=== PATIENT | female | born 1940 | race Caucasian/White ===

== ENCOUNTER 2020-06-29 09:47 | Outpatient (CLI) | payer MEDICARE, SELFPAY ==
--- NOTE | ~2020-06-29 | DEXA_ITS ---
Bone Density Report Name: Anna Moctezuma Age: 80 Sex: Female Ethnicity: White Date of : 1940 Indication: postmenopausal osteoporosis; parental hip fracture; Referring Provider: Yessenia Mercado Study: Bone densitometry was performed. Exam Date: June 29, 2020 Accession number: [id number] Bone Density: Region BMD T-score Z-score Classification AP Spine (L1, L2, L3) 0.742 -2.5 0.1 Osteoporosis Femoral Neck (Left) 0.489 -3.2 -1.0 Osteoporosis Total Hip (Left) 0.590 -2.9 -0.9 Osteoporosis Total Hip Bilateral Avg 0.584 -3.0 -0.9 Osteoporosis Femoral Neck (Right) 0.495 -3.2 -0.9 Osteoporosis Total Hip (Right) 0.578 -3.0 -1.0 Osteoporosis World Health Organization criteria for BMD impression classify patients as: Normal (T-score at or above -1.0), Osteopenia (T-score between -1.0 and -2.5), or Osteoporosis (T-score at or below -2.5). 10-year Fracture Risk: FRAX not reported because: Some T-score for Spine Total or Hip Total or Femoral Neck at or below -2.5 Previous Exams: Region Exam Age BMD T-score BMD Change BMD Change Date g/cm2 vs Baseline vs Previous AP Spine(L1, L2, L3) 06/29/2020 80 0.742 -2.5 0.100(15.6%)* 0.100(15.6%)* 10/02/2014 74 0.642 -3.4 Total Hip(Left) 06/29/2020 80 0.590 -2.9 0.001(0.2%) 0.001(0.2%) 10/02/2014 74 0.589 -2.9 Total Hip(Right) 06/29/2020 80 0.578 -3.0 -0.032(-5.2%)* -0.032(-5.2%)* 10/02/2014 74 0.609 -2.7 *Denotes significance at 95% confidence level, LSC for AP Spine = 0.022 g/cm2, LSC for Total Hip = 0.027 g/cm2 Clinical Information Provided by Patient: Parent has had a hip fracture Smokes Has used the following medications: Vitamin D, Calcium Patient maximum height was 62.5 Menopause Age: 45 Drinks caffeinated beverages Onset of menses at age 13 Number of children 2 Impression: The patient has osteoporosis, based on the Left Femoral Neck T-score. The patient has risk factors, including: parental hip fracture, smoking. The BMD for the Total Hip(Right) decreased, changing by -5.2% since the last DXA exam. Discussion: INCREASED RISK OF FRACTURE. BONE DENSITY IS UNDESIRABLY LOW AT ONE OR MORE SKELETAL SITES, CONSISTENT WITH POSTMENOPAUSAL OSTEOPOROSIS. This patient's lowest T-score meets the World Health Organization's (WHO) criteria for osteoporosis at one or more sites (T-score -2.5 or below). In untreated patients, the risk of osteoporotic fracture increases approximately two-fold fo
== END 2020-06-29 09:48 | disposition home or self-care (01) ==
LOC: ANHIMG 09:49
PROVIDERS: PCP Family Medicine; Visit Provider Nurse Practitioner
DX: M81.0 Age-related osteoporosis without current pathological fracture (principal)
CPT/HCPCS: 77080

== ENCOUNTER 2020-11-16 09:50 | Outpatient (CLI) | payer MEDICARE, SELFPAY ==
--- NOTE | ~2020-11-16 | CT_ITS ---
EXAMINATION: CT lung screening DATE: 11/16/2020 10:03 INDICATION: pers hx of tobacco dependence TECHNIQUE: Computed tomography (CT) of the chest was performed without intravenous contrast. Addition al 3D reconstructions utilizing coronal maximum intensity projection (MIP) were performed. Automated exposure control and iterative reconstruction technique were employed. The dose-length product was 54 .60 mGy-cm. COMPARISON: CT neck dated 07/27/2019 FINDINGS: Severe emphysema with chronic mild biapical pleural-parenchymal scarring. 1.5 cm groundglass nodule w ithout solid component in the anterior segment of the right upper lobe. Additional more informative g roundglass opacities along the dependent aspect of the bilateral lower lobes consistent with mild pas sive atelectasis. No solid pulmonary nodules, pneumonia or pleural effusion. Heart size is normal. At herosclerotic coronary artery calcifications. No pericardial effusion. Additional atherosclerotic edgar cification along the normal caliber thoracic aorta. No pathologically enlarged thoracic lymphadenopat hy. Visualized upper abdomen is unremarkable. Mild lower thoracic levocurvature with moderate spondyl osis. IMPRESSION: 1. Lung-RADS category 2: Benign appearance or behavior. Continue annual screening with noncontrast lo w-dose chest CT in 12 months. 2. Severe emphysema.. Reviewed, dictated and finalized at location B. IMPRESSION: 1. Lung-RADS category 2: Benign appearance or behavior. Continue annual screeni ng with noncontrast low-dose chest CT in 12 months. 2. Severe emphysema..
== END 2020-11-16 09:51 | disposition home or self-care (01) ==
PROVIDERS: PCP Nurse Practitioner; Visit Provider Nurse Practitioner
DX: Z12.2 Encounter for screening for malignant neoplasm of respiratory organs (principal); Z87.891 Personal history of nicotine dependence; J43.9 Emphysema, unspecified
CPT/HCPCS: 71271

== ENCOUNTER 2021-06-12 09:02 | Outpatient (CLI) | payer MEDICARE, SELFPAY ==
[2021-06-12 09:43] LABS: Basophils Percent Auto 0.6 % (0.2-1.2); Eosinophils Absolute Auto 0.2 K/mm3 (0-0.3); Eosinophils Percent Auto 3.4 % (0-4.4); Hematocrit 39.9 % (37.0-47.0); Hemoglobin 13.4 g/dL (12.0-15.0); Immature Granulocyte Absolute 0.02 K/mm3 (0.00-0.031); Immature Granulocyte Percent A 0.3 % (0-0.5); Lymphocytes Absolute Auto 2.44 K/mm3 (0.9-3.2); Lymphocytes Percent Auto 34.3 % (18.3-44.2); Mean Corpuscular HGB Conc 33.6 g/dl (32-36); Mean Corpuscular Hemoglobin 32.3 pg (26-34); Mean Corpuscular Volume 96.1 fl (80-100); Mean Platelet Volume 9.7 fl (7.4-10.4); Monocytes Absolute Auto 0.5 K/mm3 (0.1-0.6); Monocytes Percent Auto 7.6 % (2.6-8.5); Neutrophils Absolute Auto 3.8 K/mm3 (1.3-6.7); Neutrophils Percent Auto 53.8 % (45.5-73.1); Platelet Count Result 244 k/mm3 (150-375); Red Blood Count 4.15 M/mm3 (4.2-5.4); Red Cell Distribution Width 13.2 % (11.5-14.5); White Blood Count 7.1 K/mm3 (4.5-10.0)
[2021-06-12 09:57] LABS: Alanine Aminotransferase 15 U/L (4-35); Albumin Level 4.5 g/dL (3.5-5.1); Alkaline Phosphatase 50 U/L (38-126); Anion Gap 5 mmol/L (8-16); Aspartate Amino Transferase 27 U/L (14-36); Bilirubin,Total 0.6 mg/dL (0.2-1.3); Blood Urea Nitrogen 14 mg/dL (7-17); Carbon Dioxide 28 mmol/L (22-30); Chloride 106 mmol/L (98-107); Cholesterol 191 mg/dL (0-200); Estimated Glomerular Filt Rate > 60; Glucose 97 mg/dL (65-110); HDL Direct 59 mg/dL; Potassium 4.6 mmol/L (3.4-5.0); Sodium 139 mmol/L (137-145); Triglycerides 134 mg/dL (<150)
[2021-06-12 10:09] LABS: LDL Cholesterol Direct 87 mg/dL
== END 2021-06-12 09:03 | disposition home or self-care (01) ==
PROVIDERS: PCP Nurse Practitioner; Visit Provider Nurse Practitioner
DX: E55.9 Vitamin D deficiency, unspecified (principal); E78.5 Hyperlipidemia, unspecified; I10 Essential (primary) hypertension
CPT/HCPCS: 36415; 80053; 80061; 82306; 85025

== ENCOUNTER 2022-05-22 10:17 | Outpatient (CLI) | payer MEDICARE, SELFPAY ==
--- NOTE | ~2022-05-22 | CT_ITS ---
EXAMINATION:CT diagnostic chest wo con DATE: 05/22/2022 10:42 INDICATION: Lung nodule. TECHNIQUE: Computed tomography (CT) of the chest was performed without intravenous contrast. Automate d exposure control and iterative reconstruction technique were employed. The dose-length product (DLP ) was 59.96 mGy-cm. COMPARISON: Chest CT 11/16/2020 FINDINGS: There is mild scarring at the lung apices. Again seen is a 1.4 severe groundglass opacity i n right upper lobe, likely benign. There is severe emphysema. There is mild bronchiectasis in right m iddle lobe and lingula. No pleural effusion. The heart size is normal. There are coronary artery calc ifications. No pericardial effusion. There is severe cervical spondylosis and moderate thoracic spond ylosis. There is dextroscoliosis of thoracic spine. IMPRESSION: 1. Severe emphysema. Reviewed, dictated and finalized at location A. IMPRESSION: 1. Severe emphysema.
== END 2022-05-22 10:18 | disposition home or self-care (01) ==
PROVIDERS: PCP Family Medicine; Visit Provider Nurse Practitioner
DX: R91.1 Solitary pulmonary nodule (principal); J43.9 Emphysema, unspecified
CPT/HCPCS: 71250

== ENCOUNTER 2022-07-09 07:23 | Outpatient (CLI) | payer MEDICARE, SELFPAY ==
--- NOTE | ~2022-07-09 | NM_ITS ---
EXAMINATION: NM neda stress w perfusion DATE: 07/09/2022 11:46 GROCERY CLERK STOCKING INDICATION: Dyspnea. TECHNIQUE: Rest images were obtained following intravenous administration of 10.7 mCi Tc99m tetrofosm in (Myoview). The patient was infused intravenously with Lexiscan (regadenoson). Then, 33 mCi Tc99m t etrofosmin (Myoview) was administered intravenously, and stress images were obtained. Data was recons tructed into short axis and horizontal and vertical long axis SPECT images. Gated SPECT images were a lso obtained. COMPARISON: None. FINDINGS: There is a moderate sized fixed perfusion abnormality of the left ventricle primarily invol ving the apex, inferior and septal kelly. There is no segmental wall motion abnormality. Left ventr icular ejection fraction measures 59%. IMPRESSION: 1. . Sized fixed perfusion abnormality of the left ventricle involving the apex, inferior and septal kelly, compatible with infarction. 2. Mildly decreased left ventricular ejection fraction measuring 59%. Reviewed, dictated and finalized at location A. ERY CLERK STOCKING IMPRESSION: 1. . Sized fixed perfusion abnormality of the left ventricle involving the apex , inferior and septal kelly, compatible with infarction. 2. Mildly decreased left ventricular ejection fraction measuring 59%.
--- NOTE | 2022-07-09 07:44 | ECHO_ITS ---
Patient Info Name: Anna Moctezuma Age: 82 years : 1940 Gender: Female Ht: 62 in Wt: 98 lbs BSA: 1.39 m2 Technical Quality: Fair Exam Date: 07/09/2022 8:20 AM Exam Location: [facility] Patient Status: Outpatient Admit Date: 07/09/2022 Staff Ordering Physician: Junaid Faulkner DO Inspector Finishing: Axel Benjamin RDCS, RT Attending Provider: Junaid Faulkner DO Referring Physician: Kaushik FOWLER; Exam Type: CA echo doppler with color flow Study Info Indications R06.00 - Dyspnea, unspecified Complete two-dimensional, color flow and Doppler transthoracic echocardiogram is performed. Strain analysis performed. Summary 1. Complete two-dimensional, color flow and Doppler transthoracic echocardiogram is performed. 2. Left ventricular systolic function is globally moderately reduced, estimated at 40-45%. 3. Left ventricular chamber dimension is mildly enlarged. 4. Left ventricular septal wall motion is abnormal with septal motion related to bundle branch block. 5. The left ventricular diastolic function is grade I diastolic dysfunction. 6. E/e' 9 is minimally elevated. 7. Global longitudinal strain is abnormal at -12.3%. 8. The aortic valve is not well visualized. Cannot determine number of aortic valve leaflets. 9. There is mild to moderate aortic valve stenosis based on a peak velocity of 133.16 cm/s, mean gradient of 4 mmHg, and aortic valve area of 1.42 cm2. 10. The mitral valve has moderately calcified annulus. 11. There is moderate mitral valve regurgitation. 12. There is trace tricuspid valve regurgitation. Left Ventricle E/e' 9 is minimally elevated. Global longitudinal strain is abnormal at -12.3%. Left ventricular systolic function is globally moderately reduced, estimated at 40-45%. Left ventricular chamber dimension is mildly enlarged. Left ventricular septal wall motion is abnormal with septal motion related to bundle branch block. The left ventricular diastolic function is grade I diastolic dysfunction. Right Ventricle Right ventricular systolic function is normal and with normal TAPSE 2.0 cm. Right ventricular chamber dimension is normal. Left Atria Left atrial chamber dimension is normal. Right Atria Right atrial chamber dimension is normal. Aortic Valve There is mild to moderate aortic valve stenosis based on a peak velocity of 133.16 cm/s, mean gradient of 4 mmHg, and aortic valve area of 1.42 cm2. The aortic valve is not well visualized. Cannot determine number of aortic valve leaflets. There is no aortic valve regurgitation. Pulmonic Valve There is no pulmonic regurgitation. Mitral Valve The mitral valve has moderately calcified annulus. There is no mitral valve stenosis. There is moderate mitral valve regurgitation. Tricuspid Valve RVSP is not calculated due to an inadequate TR jet. There is trace tricuspid valve regurgitation. Pericardium/Pleural There is no pericardial effusion. Inferior Vena Cava Normal inferior vena cava with >50% collapse upon inspiration consistent with normal right atrial pressure, 5 mmHg. Aorta The aortic root size at the sinus of Valsalva is normal. Left Ventricular Outflow Tract Name Value Normal LVOT 2D LVOT Diameter 1.89 cm
--- NOTE | 2022-07-09 07:45 | EST_ITS ---
Patient Info Name: Anna Moctezuma Age: 82 years : 1940 Gender: Female Ht: 62 in Wt: 98 lbs BSA: 1.39 m2 Exam Date: 07/09/2022 10:04 AM Exam Location: [facility] Stress Patient Status: Outpatient Admit Date: 07/09/2022 Staff Ordering Physician: Junaid Faulkner DO Attending Provider: Junaid Faulkner DO Exercise Technologist: Axel Benjamin RDCS, RT Exercise Physician: Junaid Faulkner DO Exam Type: CA stress neda w NM Study Info A regadenoson stress test was performed. Summary 1. 1. Inconclusive lexiscan stress test for ischemic ST changes by ECG criteria due to baseline LBBB. 2. 2. Baseline hypertension. 3. 3. Nuclear scan to follow and will be reported separately. Please correlate with it. 4. 4. Patient informed of the above results. Protocol: Lexiscan Stress ECG Details Stage: REST Duration (min): 2 min : 43 sec HR (bpm): 60 SBP (mmHg): 167 DBP (mmHg): 82 Stage: REST Duration (min): 5 min : 4 sec HR (bpm): 57 SBP (mmHg): 167 DBP (mmHg): 82 Stage: STAGE 1 Duration (min): 0 min : 59 sec HR (bpm): 84 SBP (mmHg): 157 DBP (mmHg): 65 Stage: RECOVERY Duration (min): 1 min : 0 sec HR (bpm): 103 SBP (mmHg): 157 DBP (mmHg): 65 Stage: RECOVERY Duration (min): 2 min : 0 sec HR (bpm): 102 SBP (mmHg): 157 DBP (mmHg): 65 Stage: RECOVERY Duration (min): 3 min : 0 sec HR (bpm): 98 SBP (mmHg): 151 DBP (mmHg): 79 Stage: RECOVERY Duration (min): 3 min : 32 sec HR (bpm): 97 SBP (mmHg): 151 DBP (mmHg): 79 Rest HR: 57 bpm Peak HR: 109 bpm Rest Sys BP: 167 mmHg Peak Sys BP: 157 mmHg Max Pred HR: 139 bpm % Max Pred HR: 78 % Target HR: 118 bpm Max RPP: 17,113 bpm*mmHg Termination Reason: Completed protocol Cardiac Symptoms: Shortness of breath Total Time: 1 min : 0 sec Rest Schmidt BP: 82 mmHg Peak Schmidt BP: 65 mmHg Total Dose: 0.4 mg Resting ECG Sinus rhythm, LBBB. Stress ECG No ST changes. Arrhythmias None. Report Signatures
== END 2022-07-09 07:24 | disposition home or self-care (01) ==
PROVIDERS: PCP Family Medicine; Visit Provider Internal Medicine Cardiovascular Disease
DX: R06.09 Other forms of dyspnea (principal); I34.0 Nonrheumatic mitral (valve) insufficiency
CPT/HCPCS: 78452; 93017; 93306; A9502; C8929; J2785

== ENCOUNTER 2022-09-13 10:15 | Outpatient (CLI) | payer MEDICARE, SELFPAY ==
--- NOTE | ~2022-09-13 | DEXA_ITS ---
Bone Density Report Name: KARRIE HANSON Age: 82 Sex: Female Ethnicity: White Date of : 1940 Indication: postmenopausal; screening for osteoporosis; prior fracture; secondary osteoporosis; Referring Provider: STEFANIE GUERRIER Study: Bone densitometry was performed. Exam Date: September 13, 2022 Accession number: [id number] Bone Density: Region BMD T-score Z-score Classification AP Spine(L1-L4) 0.854 -1.8 1.0 Osteopenia Femoral Neck (Left) 0.546 -2.7 -0.4 Osteoporosis Total Hip (Left) 0.628 -2.6 -0.4 Osteoporosis Femoral Neck (Right) 0.556 -2.6 -0.3 Osteoporosis Total Hip (Right) 0.610 -2.7 -0.6 Osteoporosis Total Hip Mean 0.619 -2.7 -0.5 Osteoporosis World Health Organization criteria for BMD impression classify patients as: Normal (T-score at or above -1.0), Osteopenia (T-score between -1.0 and -2.5), or Osteoporosis (T-score at or below -2.5). 10-year Fracture Risk: FRAX not reported because: Some T-score for Spine Total or Hip Total or Femoral Neck at or below -2.5 Treated for osteoporosis Clinical Information Provided by Patient: Has had a low trauma fracture Has secondary osteoporosis Is being treated for osteoporosis Has used the following medications: Prolia (i.e. denosumab), Calcium Patient maximum height was 62 Menopause Age: 45 No regular weight bearing exercise Does not regularly consume dairy products Drinks caffeinated beverages Onset of menses at age 13 Number of children 2 Impression: The patient has established osteoporosis, based on the Right Total Hip T-score and the existence of a prior fracture. The patient has risk factors, including: previous fracture. Discussion: It is important to ask patients whether they are taking their medications and to encourage continued and appropriate compliance with their osteoporosis therapies to reduce fracture risk. It is also important to review their risk factors and encourage appropriate calcium and vitamin D intakes, exercise, fall prevention and other lifestyle measures. Follow-Up: Consider a repeat BMD and Vertebral Fracture Assessment (VFA) exam in 2 years or sooner if medically necessary, to reassess this patient's status. Reported by: AG on 09/13/2022 10:47:00 AM. Reviewed, dictated and finalized at location AKarthikeyan FLEMING
== END 2022-09-13 10:16 | disposition home or self-care (01) ==
LOC: ANHIMG 10:15
PROVIDERS: PCP Family Medicine; Visit Provider Nurse Practitioner
DX: Z78.0 Asymptomatic menopausal state (principal); M85.88 Other specified disorders of bone density and structure, other site; M81.0 Age-related osteoporosis without current pathological fracture
CPT/HCPCS: 77080

== ENCOUNTER 2022-09-29 10:38 | Outpatient (CLI) | payer MEDICARE, SELFPAY ==
--- NOTE | ~2022-09-29 | US_ITS ---
EXAMINATION: US carotid duplex BI DATE: 09/29/2022 11:20 INDICATION: Carotid stenosis present on prior examination. TECHNIQUE: Grayscale, color Doppler, and p ulsed Doppler images of the cervical carotid arteries were obtained. The degree of vessel stenosis is placed in one of the following categories: normal, <50%, 50-69%, >=70% but less than near-occlusion, near-occlusion, or total occlusion. Note that percent stenosis relative to normal distal artery lume n diameter is indirectly measured from velocity measurements as described by Anatoliy, et al. Radiology 2003; 229:340-346. Notes: Normal: Peak systolic velocity <125 centimeters/sec and no plaque <50%. Peak systolic velocity <125 ( EDV <40; ICA/CCA PSV ratio <2.0; used these factors only a tandem lesions or low cardiac output or co ntralateral disease) 50-69 %: PSV 125-230 (EDV 40-100; ratio 2-4) >= 70% but less than near occlusion: PSV greater than 230 (EDV > 100; ratio> 4.0) Near Occlusion: PSV that is variable; markedly narrowed lumen Occlusion: Absent flow on color/spectral Doppler and no lumen on lópez scale. COMPARISON: Ultrasound dated 06/08/2019. FINDINGS: RIGHT: The right common carotid artery (CCA) peak systolic velocity (PSV) is 95 cm/s. The right internal car otid artery (ICA) PSV is 141 cm/s. The right ICA end-diastolic velocity (EDV) is 49 cm/s. The right I CA/CCA PSV ratio is 1.5. The external carotid artery (ECA) PSV is 127 cm/s. There is antegrade flow i n the right vertebral artery. LEFT: The left CCA PSV is 71 cm/s. The left ICA PSV is 261 cm/s. The left ICA EDV is 45 cm/s. The left ICA/ CCA PSV ratio is 3.7. The ECA PSV is 230 cm/s. There is antegrade flow in the left vertebral artery. IMPRESSION: 1. 50-69% stenosis in the right internal carotid artery by sonographic criteria. 2. Greater than or equal to 70% stenosis in the left internal carotid artery by sonographic criteria. Reviewed, dictated and finalized at location B. OBJECTS REPAIRER IMPRESSION: 1. 50-69% stenosis in the right internal carotid artery by sonographic criteria . 2. Greater than or equal to 70% stenosis in the left internal carotid artery by sonographic criteria.
== END 2022-09-29 10:39 | disposition home or self-care (01) ==
PROVIDERS: PCP Family Medicine; Visit Provider Internal Medicine Cardiovascular Disease
DX: I65.23 Occlusion and stenosis of bilateral carotid arteries (principal)
CPT/HCPCS: 93880

== ENCOUNTER 2023-09-23 12:00 | Outpatient (CLI) | payer MEDICARE, SELFPAY ==
--- NOTE | 2023-09-23 12:40 | ECHO_ITS ---
Patient Info Name: Anna Moctezuma Age: 83 years : 1940 Gender: Female Ht: 62 in Wt: 103 lbs BSA: 1.42 m2 HR: 78 bpm BP: 123 / 65 mmHg Technical Quality: Fair Exam Date: 09/23/2023 12:53 PM Exam Location: Echo Lab Patient Status: Outpatient Admit Date: 09/23/2023 Staff Ordering Physician: Junaid Faulkner DO Psychology Clinician: Yamileth Sullivan RDCS Attending Provider: Junaid Faulkner DO Referring Physician: Kaushik FOWLER; Exam Type: CA echo doppler color flow Study Info Indications - nonrheumatic aortic valve stenosis Complete two-dimensional, color flow and Doppler transthoracic echocardiogram is performed. Summary 1. Complete two-dimensional, color flow and Doppler transthoracic echocardiogram is performed. 2. Left ventricular chamber dimension is normal. 3. Left ventricular systolic function is normal, estimated at 55-60%. 4. The left ventricular diastolic function is grade I diastolic dysfunction. 5. Mid LV septum is hypokinetic. 6. E/e' 10 is mildly elevated. 7. Global longitudinal strain is normal at -20.3%. 8. There is mild aortic valve sclerosis. 9. There is mild mitral valve regurgitation. 10. There is trace tricuspid valve regurgitation. 11. No pulmonary hypertension, estimated pulmonary arterial systolic pressure is 31 mmHg. Left Ventricle E/e' 10 is mildly elevated. Global longitudinal strain is normal at -20.3%. Left ventricular chamber dimension is normal. Left ventricular systolic function is normal, estimated at 55-60%. The left ventricular diastolic function is grade I diastolic dysfunction. Mid LV septum is hypokinetic. Right Ventricle Right ventricular chamber dimension is normal. Right ventricular systolic function is normal. Left Atria Left atrial chamber dimension is normal. Right Atria Right atrial chamber dimension is normal. Aortic Valve The aortic valve is trileaflet. There is mild aortic valve sclerosis. There is no aortic valve stenosis. There is no aortic valve regurgitation. Pulmonic Valve There is no pulmonic regurgitation. Mitral Valve There is no mitral valve stenosis. There is mild mitral valve regurgitation. Tricuspid Valve There is trace tricuspid valve regurgitation. No pulmonary hypertension, estimated pulmonary arterial systolic pressure is 31 mmHg. Pericardium/Pleural There is no pericardial effusion. Inferior Vena Cava Normal inferior vena cava with >50% collapse upon inspiration consistent with normal right atrial pressure, 5 mmHg. Aorta The aortic root size at the sinus of Valsalva is normal. Left Ventricular Outflow Tract Name Value Normal LVOT 2D LVOT Diameter 2.0 cm LVOT Doppler LVOT Peak Gradient 4 mmHg LVOT Mean Gradient 2 mmHg LVOT VTI 21 cm LVOT VTI/AV VTI Ratio 0.7 LVOT Stroke Volume 66 ml LVOT CO 13.2 l/min LVOT CI 9.3 l/min/m2 Pulmonic Valve Name Value Normal
== END 2023-09-23 12:01 | disposition home or self-care (01) ==
LOC: ANHCARD 12:01
PROVIDERS: PCP Family Medicine; Visit Provider Internal Medicine Cardiovascular Disease
DX: I35.0 Nonrheumatic aortic (valve) stenosis (principal); I34.0 Nonrheumatic mitral (valve) insufficiency
CPT/HCPCS: 93306

== ENCOUNTER 2023-12-07 09:21 | Outpatient (CLI) | payer MEDICARE, SELFPAY ==
--- NOTE | ~2023-12-07 | MM_ITS ---
EXAMINATION: MM screening love BI w fernando HISTORY: Screening mammogram TECHNIQUE: Craniocaudal and mediolateral oblique 3-D tomosynthesis images were obtained and synthetic 2-D images were generated. CAD analysis was submitted and interpreted. COMPARISON: 06/08/2019 bilateral screening mammogram BREAST PARENCHYMAL COMPOSITION: There are scattered areas of fibroglandular density. FINDINGS: There is asymmetric increased density in the posterior inner right breast on CC projection, possibly related to chest wall/muscle. Diagnostic right mammogram is recommended with ultrasound if required. Otherwise there is no evidence of suspicious mass, calcification, or architectural distortion to sugg est malignancy in either breast. There has been no other suspicious interval change. IMPRESSION: 1. Posterior medial right breast asymmetry on craniocaudal view 2. Diagnostic right mammogram is recommended, with ultrasound if required BI-RADS Category 0: Incomplete: Needs additional imaging evaluation. Reviewed, dictated and finalized at location A.
== END 2023-12-07 09:22 | disposition home or self-care (01) ==
PROVIDERS: PCP Family Medicine; Visit Provider Nurse Practitioner Family
DX: Z12.31 Encounter for screening mammogram for malignant neoplasm of breast (principal); R92.8 Other abnormal and inconclusive findings on diagnostic imaging of breast
CPT/HCPCS: 77063; 77067

== ENCOUNTER 2024-01-11 12:33 | Outpatient (CLI) | payer MEDICARE, SELFPAY ==
--- NOTE | ~2024-01-11 | MM_ITS ---
EXAMINATION: MM diagnostic love RT w fernando HISTORY: Follow-up right breast asymmetry TECHNIQUE: Additional 3-D tomosynthesis images of diagnostic were performed and synthetic 2-D images were generated. CAD analysis was submitted and interpreted. COMPARISON: Comparison to multiple prior studies sequentially, with oldest reviewed study dated 04/2015. BREAST PARENCHYMAL COMPOSITION: Not dense: There are scattered areas of fibroglandular density. FINDINGS: Interval resolution of asymmetry medially in the right breast on CC view. No evidence for m alignancy in the right breast. IMPRESSION: 1. No mammographic evidence for malignancy in the right breast. 2. Routine yearly screening mammogram and regular clinical breast examination are recommended. BI-RADS Category 1: Negative Reviewed, dictated and finalized at location B. IMPRESSION: 1. No mammographic evidence for malignancy in the right breast. 2. Routine yearly screening mammogram and regular clinical breast examination a re recommended. BI-RADS Category 1: Negative
== END 2024-01-11 12:34 | disposition home or self-care (01) ==
LOC: ANHIMG 12:35
PROVIDERS: PCP Family Medicine; Visit Provider Family Medicine
DX: N64.89 Other specified disorders of breast (principal); R92.8 Other abnormal and inconclusive findings on diagnostic imaging of breast
CPT/HCPCS: 77061; 77065; G0279

== ENCOUNTER 2024-06-02 12:44 | Outpatient (CLI) | payer MEDICARE, SELFPAY ==
--- NOTE | ~2024-06-02 | CT_ITS ---
EXAMINATION: CTA brain carotid DATE: 06/02/2024 13:14 INDICATION: Occlusion and stenosis of unspecified carotid artery. TECHNIQUE: Computed tomographic angiography (CTA) of the head was performed without and with 100 mL O mnipaque-350 intravenous contrast. CTA of the neck was performed with intravenous contrast. Automated exposure control and iterative reconstruction technique were employed. The dose-length product was 1 438.25 mGy-cm. Maximum intensity projection and volume rendered 3D-reconstructions were created by chantel navsa technologist on a separate workstation. COMPARISON: Head CT 07/07/2019, neck CTA 07/27/2019 FINDINGS: HEAD CTA: There are scattered areas of low attenuation in the cerebral white matter, which is within normal limits for the patient's age. There is no intracranial hemorrhage, acute infarction, or abnorm al intracranial mass lesion. The ventricles are normal in size. There are likely changes of ocular le ns replacement surgeries. There is mild mucosal thickening in the paranasal sinuses. The mastoid air cells are normal. The vertebral arteries are codominant. There is no significant stenosis of basilar artery or the posterior cerebral arteries. The posterior communicating arteries are normal. There is no significant stenosis of intracranial internal carotid arteries or anterior or middle cerebral valeria charla. Anterior commuting artery is normal. There is no aneurysm. NECK CTA: The lung apices demonstrate emphysema. There is mild scarring at the lung apices. There are nodules in the thyroid measuring up to 7 mm, likely not clinically significant. There are no patholo gically enlarged lymph nodes. There is no significant stenosis of the vertebral arteries. There is pl aque in the proximal internal carotid. There is 35% stenosis of the proximal right internal carotid a rtery relative to normal distal artery lumen diameter (NASCET criteria). There is 57% stenosis of the proximal left internal carotid artery relative to normal distal artery lumen diameter. IMPRESSION: 1. Normal aging brain. No aneurysm or significant intracranial arterial stenosis. 2. 35% stenosis of the proximal right internal carotid artery relative to normal distal artery lumen diameter (NASCET criteria). 3. 57% stenosis of the proximal left internal carotid artery relative to normal distal artery lumen d iameter. Reviewed, dictated and finalized at location A. IMPRESSION: 1. Normal aging brain. No aneurysm or significant intracranial arterial stenosi s. 2. 35% stenosis of the proximal right internal carotid artery relative to anna l distal artery lumen diameter (NASCET criteria). 3. 57% stenosis of the proximal left internal carotid artery relative to normal distal artery lumen diameter.
[2024-06-02 13:04] LABS: Estimated Glomerular Filt Rate 53
== END 2024-06-02 12:45 | disposition home or self-care (01) ==
LOC: ANHIMG 12:47
PROVIDERS: PCP Nurse Practitioner Family; Visit Provider Internal Medicine Cardiovascular Disease
DX: I65.23 Occlusion and stenosis of bilateral carotid arteries (principal); I65.29 Occlusion and stenosis of unspecified carotid artery
CPT/HCPCS: 70496; 70498; Q9967

== ENCOUNTER 2024-09-30 11:31 | Outpatient (CLI) | payer MEDICARE, SELFPAY ==
--- NOTE | ~2024-09-30 | DEXA_ITS ---
Bone Density Report Name: KARRIE HANSON Age: 84 Sex: Female Ethnicity: White Date of : 1940 Indication: postmenopausal osteoporosis; monitoring treatment; height loss; prior fracture; secondary osteoporosis; Referring Provider: NEHAL HERNANDEZ Study: Bone densitometry was performed. Exam Date: September 30, 2024 Accession number: [id number] Bone Density: Region BMD T-score Z-score Classification AP Spine(L1-L4) 0.827 -2.0 0.8 Osteopenia Femoral Neck (Left) 0.528 -2.9 -0.4 Osteoporosis Total Hip (Left) 0.645 -2.4 -0.2 Osteopenia Femoral Neck (Right) 0.556 -2.6 -0.2 Osteoporosis Total Hip (Right) 0.594 -2.8 -0.6 Osteoporosis Total Hip Mean 0.620 -2.6 -0.4 Osteoporosis World Health Organization criteria for BMD impression classify patients as: Normal (T-score at or above -1.0), Osteopenia (T-score between -1.0 and -2.5), or Osteoporosis (T-score at or below -2.5). 10-year Fracture Risk: FRAX not reported because: Some T-score for Spine Total or Hip Total or Femoral Neck at or below -2.5 Treated for osteoporosis Previous Exams: Region Exam Age BMD T-score BMD Change BMD Change Date g/cm2 vs Baseline vs Previous AP Spine (L1-L4) 09/30/2024 84 0.827 -2.0 0.167 (25.3%)# -0.027 (-3.1%) 09/13/2022 82 0.854 -1.8 0.194 (29.4%)* 0.194 (29.4%)* 10/02/2014 74 0.660 -3.5 Total Hip(Left) 09/30/2024 84 0.645 -2.4 0.056 (9.6%)# 0.017 (2.7%)# 09/13/2022 82 0.628 -2.6 0.039 (6.6%)* 0.038 (6.4%)* 06/29/2020 80 0.590 -2.9 0.001 (0.2%) 0.001 (0.2%) 10/02/2014 74 0.589 -2.9 Total Hip(Right) 09/30/2024 84 0.594 -2.8 -0.015 (-2.4%) -0.015 (-2.5%) 09/13/2022 82 0.610 -2.7 0.000 (0.1%)# 0.032 (5.5%)# 06/29/2020 80 0.578 -3.0 -0.032 (-5.2%) -0.032 (-5.2%) 10/02/2014 74 0.609 -2.7 *Denotes significance at 95% confidence level, LSC for AP Spine = 0.022 g/cm2, LSC for Total Hip = 0.027 g/cm2 # Denotes dissimilar scan types or analysis methods Clinical Information Provided by Patient: Has had a low trauma fracture Has secondary osteoporosis Is being treated for osteoporosis Has used the following medications: Prolia (i.e. denosumab), Calcium Patient maximum height was 62 Menopause Age: 45 No regular weight bearing exercise Does not regularly consume dairy products Drinks caffeinated beverages Onset of menses at age 13 Number of children 2 Impression: The patient has established osteoporosis, based on the Left Femoral Neck T-score and the existence of a prior fracture. The patient has risk factors, including: previous fracture. No significant bone loss was observed. Discussion: PATIENT UNDER TREATMENT WITH NO SIGNIFICANT BMD LOSS SINCE LAST EXAM. In an untreated patient, BMD typically declines with age. A lack of decline or gain is usually a sign that treatment is efficacious and fracture risk is reduced. It is important to ask patients whether they are taking their medications and to encourage continued and appropriate compliance with their osteoporosis therapies to reduce fracture risk. It is also important to review their risk factors and encourage appropriate calcium and vitamin D intakes, exercise, fall prevention and other lifestyle measures. Follow-Up: Consider a repeat BMD and Vertebral Fracture Assessment (VFA) exam in 2 years or sooner if medically necessary, to reassess this patient's status. Reported by: SERGEY on 09/30/2024 12:22:00 PM. Reviewed, dictated and finalized at location AKarthikeyan [facility] CENTERAkbar
--- OUTSIDE RECORDS SUMMARY | 2024-09-30 11:57 | XMS_ITS | Continuity of Care Document ---
Author Organization [email or web address] Address [address] [place] [address] Phone Care Team Providers Care Outboard Motor Assembler Name Role Phone Kaushal Duong MD Unavailable [...] Diagnoses Date Provider Providers Copied on Encounter [facility], [address], [place], [place], [id number], tel:[phone] SEC Tito BOSS Professional F/u exam, postop (chief complaint) Encounter for examination following surgery 6 Ad Easley. [address], [facility] [[email or web address] [place], [address], [place]. tel:[phone] Referring Provider: Kaushal Galicia, [address] [facility] [[email or web address]] A, [place], [address] . tel:[phone] [facility], [address], [place], [place], [address], [place] tel:[phone] SEC Tito BOSS Professional Procedure (chief complaint) Other secondary cataract, left eye 6 Ad Easley. [address], [address] [place], [address], [place]. tel:[phone] Referring Provider: Kaushal Galicia, [address], [place], [address] . tel:[phone] [facility], [address], [place], [place], [address], [place] tel:[phone] SEC Tito GERA Professional No Information 5 Yessiphyllis Kaushal. [address], [address] [place], [address], [place]. tel:[phone] [facility], [address], [place], [place], [address], [place] tel:[phone] SEC Tito BOSS Professional Procedure (chief complaint) After-catara ct of right eye with vision obscured Dec-0 9-201 5 Wankum Kaushal. [address], [address], [place], [place], [address], [place]. tel:[phone] Referring Provider: Kaushal Galicia, [address], [place], [address] . tel:[phone] [facility], [address], [place], [place], [address], [place] tel:[phone] SEC Tito BOSS Professional Difficulty reading (chief complaint) Pseudophakia of both eyesAfter-ca taract with vision obscured of both eyes Nov-2 5-201 5 Wankum Kaushal. [address], [address], [place], [place], [address], [place]. tel:[phone] Referring Provider: Kaushal Galicia, [address], [place], [address] . tel:[phone] [facility], [address], [place], [place], [address], [place] tel:[phone] SEC Tito BOSS Professional No Information Nov-0 5-201 5 Wankum Kaushal. [address], [address], [place], [place], [address], [place]. tel:[phone] [facility], [address], [place], [place], [address], [place] tel:[phone] SEC Tito BOSS Professional Complete Eye Exam (chief complaint)red ness (chief complaint) Pseudophakia After cataract not obscuring visionDry eye Nov-1 8-201 4 Wankum Kaushal. [address] [facility], [address], [place], [place], [address], [place]. tel:[phone] Referring Provider: Kaushal Galicia, [address] [facility] [address], [place], [address] . tel:[phone] [facility], [address], [place], [place], [address], [place] tel:[phone] SEC Tito BOSS Professional a comprehensive exam (chief complaint) FOLLOW-UP SURGERY NOSOPN CHRIS PÉREZLN FIND Low Risk 4 Nissa López. [address], [address], [place], [place], [facility], [place]. tel:[phone] Referring Provider: Kaushal Galicia, [address] [facility] [address], [place], [address] . tel:[phone] [facility], [address], [place], [place], [address], [place] tel:[phone] SEC Campbell Ingrid [facility] FOLLOW-UP SURGERY NOS 4 Dale Kennedy. [address], [address], [place], [place], [address], [place]. tel:[phone] [facility], [address], [place], [place], [address], [place] tel:[phone] SEC Tito BOSS Professional a comprehensive exam (chief complaint) FOLLOW-UP SURGERY NOS 4 Nissa López. [address], [address], [place], [place], [facility], [place]. tel:[phone] Referring Provider: Kaushal Galicia, [address] [facility] [address], [place], [address] . tel:[phone] [facility], [address], [place], [place], [address], [place] tel:[phone] SEC Tito [place] Professional a comprehensive exam (chief complaint) FOLLOW-UP SURGERY NOS 4 Ventur[place]apis Kaushal. [address] [facility], [address], [place], [place], [address], [place]. tel:[phone] Referring Provider: Kaushal Galicia, [address], [place], [address] . tel:[phone] [facility], [address], [place], [place], [address], [place] [phone] [facility] No Information 4 Dale Brent. [address], [address], [place], [place], [address], [place]. tel:[phone] Referring Provider: Kaushal Galicia, [address] [facility] [address], [place], [address] . tel:[phone] [facility], [address], [place], [place], [address], [place] tel:[phone] SEC Campbellsavanah Chin No Information 4 Dale Brent. [address], [address], [place], [place], [address], [place]. tel:[phone] Referring Provider: Kaushal Galicia, [address], [place], [address] . tel:[phone] [facility], [address], [place], [place], [address], [place] tel:[phone] SEC [place] Professional a comprehensive exam (chief complaint) FOLLOW-UP SURGERY NOS 4 Venturachapis Kaushal. [address], [address] [place], [address], [place]. tel:[phone] Referring Provider: Kaushal Galicia, [address] [facility] [address], [place], [address] . tel:[phone] [facility] [facility], [address], [place], [place], [address], [place] tel:[phone] SEC Tito BOSS Professional 1 day post op (chief complaint) FOLLOW-UP SURGERY NOS 4 Ad Easley. [address] [facility], [address], [place], [place], [address], [place]. tel:[phone] Referring Provider: Kaushal Galicia, [address] [facility] [address], [place], [address] . tel:[phone] [facility], [address], [place], [place], [address], [place] tel:[phone] [facility] No Information 4 Dale eKnnedy. [address], [address], [place], [place], [address], [place]. tel:[phone] Referring Provider: Kaushal Galicia, [address] [facility] [address], [place], [address] . tel:[phone] [facility], [address], [place], [place], [address], [place] tel:[phone] SEC Viral Mena No Information 4 Dale Brent. [address], [address], [place], [place], [address], [place]. tel:[phone] Referring Provider: Kaushal Galicia, [address] [facility] [address], [place], [address] . tel:[phone] Office/outpa tient Visit, Est [facility], [address], [place], [place], [address], [place] tel:[phone] SEC Tito BOSS Professional a comprehensive exam (chief complaint) SENILE NUCLEAR CATARACT Nov 3 Dale Kennedy. [address], [address], [place], [place], [address], [place]. tel:[phone] Referring Provider: Kaushal Galicia, [address] [facility] [address], [place], [address] . tel:[phone] [facility], [address], [place], [place], [address], [place] tel:[phone] SEC Raleigh GERA Professional a comprehensive exam (chief complaint) SENILE NUCLEAR CATARACTOPN CHRIS PÉREZLN FIND Low Risk Oct-2 3 Ad Easley. [address] [facility], [email or web address]] A, [place], [place], [address], . tel:[phone] Referring Provider: Kaushal Galicia, [address] [facility] [address], [place], [address] . tel:[phone] Family History Family Member Type Diagnosis Age At Onset No Information Payers Payer name Insurance type Covered alliance party ID Authoriza tion(s) No Information Social [...] post op exam. Return in 1 month [facility] Kaushal Duong M.D. for post op exam. [...]
== END 2024-09-30 11:32 | disposition home or self-care (01) ==
LOC: ANHIMG 11:32
PROVIDERS: PCP Family Medicine; Visit Provider Family Medicine
DX: Z78.0 Asymptomatic menopausal state (principal); M85.88 Other specified disorders of bone density and structure, other site; M81.0 Age-related osteoporosis without current pathological fracture; M85.852 Other specified disorders of bone density and structure, left thigh
CPT/HCPCS: 77080

== ENCOUNTER 2024-10-12 09:36 | Outpatient (CLI) | payer MEDICARE, SELFPAY ==
--- NOTE | 2024-10-12 09:57 | ECHO_ITS ---
Patient Info Name: Anna Moctezuma Age: 84 years : 1940 Gender: Female Ht: 62 in Wt: 102 lbs BSA: 1.42 m2 HR: 60 bpm BP: 120 / 58 mmHg Technical Quality: Good Exam Date: 10/12/2024 10:07 AM Exam Location: Echo Lab Patient Status: Outpatient Admit Date: 10/12/2024 Staff Ordering Physician: Junaid Faulkner DO Supervisory Air Intercept Controller: Claire Clancy RDCS Attending Provider: Junaid Faulkner DO Referring Physician: Kaushik FOWLER; Exam Type: CA echo doppler color flow Study Info Complete two-dimensional, color flow and Doppler transthoracic echocardiogram is performed. Summary 1. Complete two-dimensional, color flow and Doppler transthoracic echocardiogram is performed. 2. Left ventricular chamber dimension is mildly enlarged. 3. Left ventricular systolic function is preserved, estimated at 50-55%. 4. The left ventricular diastolic function is abnormal. 5. E/e' 12 is mildly elevated. 6. There is moderate aortic valve sclerosis. 7. There is moderate mitral valve regurgitation. 8. There is mild to moderate tricuspid valve regurgitation. 9. Mild pulmonary hypertension, estimated pulmonary arterial systolic pressure is 45 mmHg. Left Ventricle E/e' 12 is mildly elevated. Left ventricular systolic function is preserved, estimated at 50-55%. Left ventricular chamber dimension is mildly enlarged. The left ventricular diastolic function is abnormal. Right Ventricle Right ventricular systolic function is normal and with normal TAPSE 1.9 cm. Right ventricular chamber dimension is normal. Left Atria Left atrial chamber dimension is normal. Right Atria Right atrial chamber dimension is normal. Aortic Valve The aortic valve is trileaflet. There is moderate aortic valve sclerosis. There is no aortic valve stenosis. There is no aortic valve regurgitation. Pulmonic Valve There is no pulmonic regurgitation. Mitral Valve There is no mitral valve stenosis. There is moderate mitral valve regurgitation. Tricuspid Valve There is mild to moderate tricuspid valve regurgitation. Mild pulmonary hypertension, estimated pulmonary arterial systolic pressure is 45 mmHg. Pericardium/Pleural There is no pericardial effusion. Inferior Vena Cava Normal inferior vena cava with >50% collapse upon inspiration consistent with normal right atrial pressure, 5 mmHg. Aorta The aortic root size at the sinus of Valsalva is normal. Left Ventricular Outflow Tract Name Value Normal LVOT 2D LVOT Diameter 1.7 cm LVOT Doppler LVOT Peak Gradient 4 mmHg LVOT Mean Gradient 2 mmHg LVOT VTI 21 cm LVOT VTI/AV VTI Ratio 0.5 LVOT Stroke Volume 48 ml LVOT CO 9.0 l/min LVOT CI 6.3 l/min/m2 Pulmonic Valve Name Value Normal PV Doppler PV Peak Gradient 4 mmHg Mitral Valve Name Value Normal MV Doppler MV Decel Dent 383 cm/s2 MV PHT 74 ms MV Area (PHT) 3.0 cm2 4.0-5.0 MV Diastolic Function MV E Peak Velocity 98 cm/s MV A Peak Velocity 88 cm/s MV E/A 1.1 MV Decel Time 255 ms MV Annular TDI MV E/e' (Septal) 14.5 <=8.0 MV E/e' (Lateral) 10.9 <=8.0 MV E/e' (Average) 12.7 Tricuspid Valve Name Value Normal TV Regurgitation Doppler TR Peak Velocity 317 cm/s TR Peak Gradient 40 mmHg Estimated PAP/RSVP RA Pressure 5 mmHg <=5 PA Systolic Pressure 45 mmHg <36 RV Systolic Pressure 45 mmHg <36 Aorta Name Value Normal Ascending Aorta Ao Root Diameter (MM) 2.7 cm Ao Root Diam Index (MM) 1.9 cm/m2 Aortic Valve Name Value Normal AV Doppler AV Peak Velocity 159 cm/s AV Peak Gradient 10 mmHg AV Mean Gradient 7 mmHg AV VTI 40 cm AV Area (Cont Eq VTI) 1.2 cm2 >=3.0 AV Area (Cont Eq Polo) 1.3 cm2 AV Regurgitation 2D LVOT Area 2.2 cm2 Ventricles Name Value Normal LV Dimensions 2D/MM IVS Diastolic Thickness (2D) 1.1 cm 0.6-1.0 LVID Diastole (2D) 3.7 cm 3.8-5.2 LVIW Diastolic Thickness (2D) 1.0 cm 0.6-0.9 LVID Systole (2D) 2.7 cm 2.2-3.5 LVOT Diameter 1.7 cm LV Mass (2D Cubed) 115.03 g 67.00-162.00 LV Mass Index (2D Cubed) 81 g/m2 43-95 Relative Wall Thickness (2D) 0.52 LV Fractional Shortening/Ejection Fraction 2D/MM LV Fractional Shortening (2D) 26 % 27-45 LV EF (2D Teicholz) 52 % 54-74 LV Diastolic Volume (4C MOD) 64 ml LV EF (4C MOD) 49 % LV Diastolic Volume (2C MOD) 78 ml LV EF (2C MOD) 60 % LV Diastolic Volume (BP MOD) 73 ml 46-106 LV Diastolic Volume Index (BP MOD) 52 ml/m2 29-61 LV Systolic Volume (BP MOD) 31 ml 14-42 LV Systolic Volume Index (BP MOD) 22 ml/m2 8-24 LV EF (BP MOD) 57 % 54-74 LV Diastolic Length (4C) 7.3 cm LV Systolic Length (4C) 6.3 cm LV Stroke Volume (4C MOD) 32 ml Atria Name Value Normal LA Dimensions LA Dimension (MM) 2.7 cm 2.7-3.8 LA Volume (4C A-L) 25 ml LA Volume (BP A-L) 30 ml RA Dimensions RA Area (4C) 11.0 cm2 <=18.0 Report Signatures
--- OUTSIDE RECORDS SUMMARY | 2024-10-12 10:30 | XMS_ITS | Continuity of Care Document ---
Author Organization [employer] [facility] Address [address] [place] [id number] Phone Care Team Providers Care Scientist Name Role Phone Kaushal Duong MD Unavailable [...] Diagnoses Date Provider Providers Copied on Encounter [facility], [address], [place], [place], [address], tel:[phone] SEC Tito BOSS Professional F/u exam, postop (chief complaint) Encounter for examination following surgery 6 Ad Easley. [address], [facility] [place], [place], [address], [place]. tel:[phone] Referring Provider: Kaushal Galicia, [address] [facility] [address], [place], [address] . tel:[phone] [facility], [address], [place], [place], [address], [place] tel:[phone] SEC Tito BOSS Professional Procedure (chief complaint) Other secondary cataract, left eye 6 Ad Easley. [address] [employer], [address] [place], [place], [address], [place]. tel:[phone] Referring Provider: Kaushal Galicia, [address], [place], [address] . tel:[phone] [facility], [address], [place], [place], [address], [place] tel:[phone] SEC Tito GERA Professional No Information 5 Yessiphyllis Kaushal. [address], [address] [place], [place], [address], [place]. tel:[phone] [facility], [address], [place], [place], [address], [place] tel:[phone] SEC Tito BOSS Professional Procedure (chief complaint) After-catara ct of right eye with vision obscured Dec-0 9-201 5 Wankum Kaushal. [address], [address], [place], [place], [address], [place]. tel:[phone] Referring Provider: Kaushal Galicia, [address], [place], [address] . tel:[phone] [facility], [address], [place], [place], [address], [place] tel:[phone] SEC Tito BOSS Professional Difficulty reading (chief complaint) Pseudophakia of both eyesAfter-ca taract with vision obscured of both eyes Nov-2 5-201 5 Wankum Kaushal. [address], [address], [place], [place], [address], [place]. tel:[phone] Referring Provider: Kaushal Galicia, [address], [place], [address] . tel:[phone] [facility], [address], [place], [place], [address], [place] tel:[phone] SEC Tito BOSS Professional No Information Nov-0 5-201 5 Wankum Kaushal. [address], [address], [place], [place], [address], [place]. tel:[phone] [facility], [address], [place], [place], [address], [place] tel:[phone] SEC Tito BOSS Professional Complete Eye Exam (chief complaint)red ness (chief complaint) Pseudophakia After cataract not obscuring visionDry eye Nov-1 8-201 4 Wankum Kaushal. [address] [facility], [address], [place], [place], [address], [place]. tel:[phone] Referring Provider: Kaushal Galicia, [address] [facility] [address], [place], [address] . tel:[phone] [facility], [address], [place], [place], [address], [place] tel:[phone] SEC Tito BOSS Professional a comprehensive exam (chief complaint) FOLLOW-UP SURGERY NOSOPN CHRIS PÉREZLN FIND Low Risk 4 Nissa López. [address], [place], [place], [facility], [place]. tel:[phone] Referring Provider: Kaushal Galicia, [address] [facility] [address], [place], [address] . tel:[phone] [facility], [address], [place], [place], [address], [place] tel:[phone] SEC [place] In[facility] FOLLOW-UP SURGERY NOS 4 Dale Kennedy. [address], [address], [place], [place], [address], [place]. tel:[phone] [facility], [address], [place], [place], [address], [place] tel:[phone] SEC Tito BOSS Professional a comprehensive exam (chief complaint) FOLLOW-UP SURGERY NOS 4 Nissa López. [address], [address], [place], [place], [facility], [place]. tel:[phone] Referring Provider: Kaushal Galicia, [address] [facility] [address], [place], [address] . tel:[phone] [facility], [address], [place], [place], [address], [place] tel:[phone] SEC [place] Professional a comprehensive exam (chief complaint) FOLLOW-UP SURGERY NOS 4 [place] Kaushal. [address] [facility], [address], [place], [place], [address], [place]. tel:[phone] Referring Provider: Kaushal Galicia, [address], [place], [address] . tel:[phone] [facility], [address], [place], [place], [address], [place] [phone] [facility] No Information 4 Arp Brent. [address], [address], [place], [place], [address], [place]. tel:[phone] Referring Provider: Kaushal Galicia, [address] [facility] [address], [place], [address] . tel:[phone] [facility], [address], [place], [place], [address], [place] tel:[phone] SEC [place] Chin No Information 4 Arp Brent. [address], [address], [place], [place], [address], [place]. tel:[phone] Referring Provider: Kaushal Galicia, [address], [place], [address] . tel:[phone] [facility], [address], [place], [place], [address], [place] tel:[phone] SEC Tito [place] Professional a comprehensive exam (chief complaint) FOLLOW-UP SURGERY NOS 4 [place] Kaushal. [address], [address] [place], [address], [place]. tel:[phone] Referring Provider: Kaushal Galicia, [address] [employer] [address], [place], [address] . tel:[phone] [facility] [employer] [facility], [address], [place], [place], [address], [place] tel:[phone] SEC Tito BOSS Professional 1 day post op (chief complaint) FOLLOW-UP SURGERY NOS 4 Ad Easley. [address] [facility], [address], [place], [place], [address], [place]. tel:[phone] Referring Provider: Kaushal Galicia, [address] [employer] [place] [address], [place], [address] . tel:[phone] [facility], [address], [place], [place], [address], [place] tel:[phone] [facility] No Information 4 Dale Kennedy. [address], [address], [place], [place], [address], [place]. tel:[phone] Referring Provider: Kaushal Galicia, [address] [employer] [address], [place], [address] . tel:[phone] [facility], [address], [place], [place], [address], [place] tel:[phone] SEC Viral Mena No Information 4 Dale Brent. [address], [address], [place], [place], [address], [place]. tel:[phone] Referring Provider: Kaushal Galicia, [address] [employer] [address], [place], [address] . tel:[phone] Office/outpa tient Visit, Est [facility], [address], [place], [place], [address], [place] tel:[phone] SEC Tito BOSS Professional a comprehensive exam (chief complaint) SENILE NUCLEAR CATARACT Nov 3 Dale Kennedy. [address], [address], [place], [place], [address], [place]. tel:[phone] Referring Provider: Kaushal Galicia, [address] [facility] [address], [place], [address] . tel:[phone] [facility], [address], [place], [place], [address], [place] tel:[phone] SEC [place] GERA Professional a comprehensive exam (chief complaint) SENILE NUCLEAR CATARACTOPN CHRIS PÉREZLN FIND Low Risk Oct-2 3 Ad Easley. [address] [employer] [place], [facility] [address], [place], [place], [address], . tel:[phone] Referring Provider: Kaushal Galicia, [address] [employer] [address], [place], [address] . tel:[phone] Family History Family Member Type Diagnosis Age At Onset No Information Payers Payer name Insurance type Covered democrat ID Authoriza tion(s) No Information Social History [...] Information Instructions Date Instruction Additional Infor roxane Follow up - Return i n 1 year with Kaushal Duong M.D. for Complete Exam. Impression/Plan - Go od result after YAG, will continue to monitor pt. Return to clinic in 1 year for complete exam or sooner with any problems. Impression/Plan - Go od post op results after Yag PC OD. Will continue to monitor. Proceed with Yag PC OS as scheduled. Patient tolerated procedure well; open pc. Return to clinic in 1 month for post op or sooner with any problems. Follow up - Return i n 1 month with Kaushal Duong M.D. for post op exam. Return in 1 month [facility] Kaushal Duong M.D. for post op exam. [...] VF Related to See impression: general plan General plan -FOLLOW -UP SURGERY NOS - One day s/p phaco with IOL OS. IOL in good position. Medication instillation and post op instructions reviewed. RTC as scheduled or sooner if problems. Educational materials provided:about today's exam. Related to See impression: general plan - RTC as scheduled Related to Se e impression: general plan 2weeks s/p cat with [...]
== END 2024-10-12 09:37 | disposition home or self-care (01) ==
PROVIDERS: PCP Family Medicine; Visit Provider Internal Medicine Cardiovascular Disease
DX: I35.0 Nonrheumatic aortic (valve) stenosis (principal); I35.8 Other nonrheumatic aortic valve disorders; I08.1 Rheumatic disorders of both mitral and tricuspid valves; I27.20 Pulmonary hypertension, unspecified
CPT/HCPCS: 93306

== ENCOUNTER 2024-11-23 09:25 | Outpatient (CLI) | payer MEDICARE, SELFPAY ==
--- OUTSIDE RECORDS SUMMARY | 2024-11-23 10:09 | XMS_ITS | CONTINUITY OF CARE DOCUMENT ---
Author Name hyun purvis Address Unknown Organization [facility] Address [address] [place] [address] Phone [phone] Care Team Providers Care Drill Press Hand Name Role Phone Andrzej Shirley MD Unavailable [phone] Margaret Eason MD Unavailable Margaret Eason MD Unavailable PROBLEMS Condition Status Date Provider Notes Cardiology examination active Andrzej torres MD Carotid artery stenosis, 50% PJ, 70% LICA by CTA 06/2023 active Andrzej Shirley MD LBBB active Andrzej Shirley MD Shortness of breath active Andrzej Webber Hyperlipidemia active Andrzej Shirley MD Cardiomyopathy, EF 40% 10/2022 active Andrzej Shirley MD Abnormal cardiovascular stre ss test, medical management active Andrzej Shirley MD Mitral regurgitation, mild-moderate active Andrzej Shirley MD Dyspnea on exertion active Andrzej Webber Dizziness active Andrzej Shirley MD ENCOUNTERS Date Type Provider Location Encounter Diag nosis - In-person encounter Office Visit Andrzej Shirley MD [facility] - In-person encounter Office Visit Andrzej Shirley MD [facility] - In-person encounter Office Visit Andrzej Shirley MD [facility] Carotid artery stenosis, 50% PJ, 70% LICA by CTA 06/2023 - In-person encounter Office Visit Andrzej Shirley MD [facility] Abnormal cardiovascular stress test, medical managementDizziness - In-person encounter Office Visit Andrzej Shirley MD [facility] - In-person encounter Office Visit Andrzej Shirley MD [facility] Carotid artery stenosis, 50% PJ, 70% LICA by CTA 06/2023HyperlipidemiaCardi omyopathy, EF 40% bnormal cardiovascular stress test, medical managementMitral regurgitation, mild-moderateDyspnea on exertion - In-person encounter Office Visit Andrzej Shirley MD [facility] Cardiology examinationCarotid artery stenosis, 50% PJ, 70% LICA by CTA 06/2023LBBBShortness of breath VITAL SIGNS Date Observation Value Provider Body Mass Index (Ratio) 18.47 kg/m2 Delmer Centeno blood pressure, diastolic 78 mm[Hg] [facility] blood pressure, systolic 115 mm[Hg] Leena ruslan [place] oxygen saturation, oximetry 97 % [facility] pulse rate 70 /min [facility] weight E&M 101.0 [lb_av] [facility] blood pressure, cuff size regular [facility] height E&M 62 [in_i] [facility] Body Mass Index (Ratio) 18.11 kg/m2 Portia Shirley MD blood pressure, cuff size regular Pankaj rri Grueneopal blood pressure, diastolic 80 mm[Hg] Ke rri Gruenenfarchie blood pressure, systolic 132 mm[Hg] Melina ri Adolph oxygen saturation, oximetry 98 % Lisa Cerdaju respiratory rate E&M 12 /min Lisa mahajaneld pulse rate 73 /min Lisa Jurado [facility][note 3] weight E&M 99 [lb_av] Lisa Jurado [facility][note 3] height E&M 62 [in_i] Lisa Jurado [facility][note 3] Body Mass Index (Ratio) 18.29 kg/m2 Portia Shirley MD blood pressure, cuff size regular [facility] blood pressure, diastolic 87 mm[Hg] [facility] blood pressure, systolic 121 mm[Hg] [facility] pulse rate 64 /min [facility] oxygen saturation, oximetry 95 % [facility] respiratory rate E&M 16 /min [facility] weight E&M 100 [lb_av] [facility] height E&M 62 [in_i] [facility] Body Mass Index (Ratio) 18.84 kg/m2 Portia Shirley MD pulse rate 81 /min [facility] oxygen saturation, oximetry 92 % [facility] respiratory rate E&M 16 /min [facility] blood pressure, diastolic 64 mm[Hg] [facility] blood pressure, systolic 141 mm[Hg] [facility] weight E&M 103 [lb_av] [facility] height E&M 62 [in_i] [facility] Body Mass Index (Ratio) 19.39 kg/m2 Portia Shirley MD blood pressure, cuff size regular Ke rri Erlinuenejenniferchi [facility] [place] [place] blood pressure, diastolic 70 mm[Hg] Ke rri Erlinuenenfeld blood pressure, systolic 110 mm[Hg] Melina ri Prashantchi [facility] [place] [place] oxygen saturation, oximetry 94 % Lisa Adolph respiratory rate E&M 12 /min Lisa G kirbyenenfelder pulse rate 71 /min Lisa Prashante lder weight E&M 106 [lb_av] Lisa Prashante lder height E&M 62 [in_i] Lisa Prashante er Body Mass Index (Ratio) 19.75 kg/m2 [facility] kristopher Shirley MD blood pressure, cuff size regular mehdi Stinson blood pressure, diastolic 81 mm[Hg] mehdi Stinson blood pressure, systolic 135 mm[Hg] She jen Stinson oxygen saturation, oximetry 97 % Jacqui Stinson respiratory rate E&M 20 /min Jacqui Stinson pulse rate 81 /min Jacqui Stinson weight E&M 108 [lb_av] Jacqui Stinson height E&M 62 [in_i] Jacqui Stinson Body Mass Index (Ratio) 19.75 kg/m2 [facility] kristopher Shirley MD blood pressure, cuff size regular rri Erlinjenn blood pressure, diastolic 72 mm[Hg] rri Erlinueneopal blood pressure, systolic 150 mm[Hg] Melina ri Adolph oxygen saturation, oximetry 96 % Lisa Adolph respiratory rate E&M 14 /min Lisa G kirbyenenfeldmagnolia pulse rate 76 /min Lisa Prashante lder weight E&M 108 [lb_av] Lisa Duyennfe lder height E&M 62 [in_i] Lisa Thomasnenfe lder ALLERGIES No Known Drug Allergies RESULTS Date Observation Value Provider Reference Range Interpretation Location cholesterol, non-HDL, total 92 MG/DL (CALC) [facility] <130 Normal cholesterol/HDL ratio, serum, percent 2.6 (calc) [facility] <5.0 Normal LDL cholesterol, serum 66 MG/DL (CALC) [facility] Normal triglyceride, serum, fasting 181 mg/dL [facility] <150 High HDL cholesterol, serum 59 mg/dL [facility] > OR = 50 Normal cholesterol, serum 151 mg/dL [facility] <200 Normal cholesterol, non-HDL, total 82 MG/DL (CALC) [facility] <130 Normal cholesterol/HDL ratio, serum, percent 2.3 (calc) [facility] <5.0 Normal LDL cholesterol, serum 61 MG/DL (CALC) [facility] Normal triglyceride, serum, fasting 125 mg/dL [facility] <150 Normal HDL cholesterol, serum 61 mg/dL [facility] > OR = 50 Normal cholesterol, serum 143 mg/dL [facility] <200 Normal D-dimer quantitative mcg/mL 0.51 MCG/ML FEU [facility] <0.50 High basophils as percent of blood leukocytes 0.7 % [facility] Normal eosinophils as percent of blood leukocytes 4.7 % [facility] Normal monocyte count, blood 7.3 % [facility] Normal lymphocyte count, blood 35.5 % [facility] Normal neutrophils as percent of blood leukocytes 51.8 % [facility] Normal basophils, absolute, manual 40 cells/mcL [facility] 0-200 Normal eosinophils, absolute, manual 268 cells/mcL [facility] 15-500 Normal monocytes, absolute, manual 416 cells/mcL [facility] 200-950 Normal lymphocytes, absolute 2024 CELLS/UL [facility] 850-3900 Normal Absolute Neutrophil count 2953 cells/mcL [facility] 9102-8551 Normal mean platelet volume 10.5 fL [facility] 7.5-12.5 Normal platelet count 283 THOUSAND/UL [facility] 140-400 Normal red blood cell distribution width 13.0 % [facility] 11.0-15.0 Normal mean corpuscular hemoglobin concentration, RBC 34.0 G/DL [facility] 32.0-36.0 Normal mean corpuscular hemoglobin, RBC 30.8 pg [facility] 27.0-33.0 Normal mean corpuscular volume, RBC 90.6 fL [facility] 80.0-100.0 Normal hematocrit, blood 39.7 % [facility] 35.0-45.0 Normal hemoglobin electrophoresis, blood 13.5 [facility] 11.7-15.5 Normal erythrocyte (RBC) count 4.38 MILLION/UL [facility] 3.80-5.10 Normal leukocyte (white blood cells) count, blood 5.7 THOUSAND/UL [facility] 3.8-10.8 Normal NT-pro BNP 70 [facility] Normal calcium, serum 9.1 mg/dL [facility] 8.6-10.4 Normal carbon dioxide, venous blood 29 mmol/L [facility] 20-32 Normal chloride, serum 105 mmol/L [facility] 98-110 Normal potassium, serum 4.3 mmol/L [facility] 3.5-5.3 Normal sodium, serum 141 mmol/L [facility] 135-146 Normal urea nitrogen/creatinine ratio, serum NOT APPLICABLE (calc) [facility] 6-22 creatinine, serum 0.83 mg/dL [facility] 0.60-0.95 Normal urea nitrogen, blood 14 mg/dL [facility] 7-25 Normal blood glucose, random 73 mg/dL [facility] 65-99 Normal thyroid stimulating hormone, serum 0.76 u[IU]/mL [facility] 0.40-4.50 Normal free thyroxine index 1.7 [facility] 1.4-3.8 Normal thyroxine, serum, total 5.5 ug/dL [facility] 5.1-11.9 Normal triiodothyronine resin uptake 31 % [facility] 22-35 Normal cholesterol, non-HDL, total 117 MG/DL (CALC) [facility] <130 Normal cholesterol/HDL ratio, serum, percent 2.5 (calc) [facility] <5.0 Normal LDL cholesterol, serum 95 MG/DL (CALC) [facility] Normal triglyceride, serum, fasting 128 mg/dL [facility] <150 Normal HDL cholesterol, serum 76 mg/dL [facility] > OR = 50 Normal cholesterol, serum 193 mg/dL [facility] <200 Normal HISTORY OF MEDICATION USE Medication Status Instructions Dates Provider Indications Com ments atorvastatin 40 mg tablet active Take 1 tablet by mouth once daily [facility] metoprolol succinate 25 mg tablet extended release 24 hr active Take 1 tablet by mouth once daily Ann-Marie [facility] metoprolol succinate 25 mg tablet extended release 24 hr completed Take 1 tablet by mouth once a day - Bean Entresto 24-26 mg tablet active Take 1 tablet by mouth twice a day Andrzej Shirley MD atorvastatin 40 mg tablet completed Take 1 tablet by mouth once a day - Bean escitalopram oxalate 5 mg tablet active TAKE 1 TABLET BY MOUTH ONCE DAILY Lisa Farfan lovastatin 10 mg tablet completed TAKE 1 TABLET BY MOUTH ONCE DAILY - Andrzej Shirley MD aspirin 81 mg tablet,delayed release (DR/EC) active Take 1 tablet by mouth once a day Lisa Farfan SOCIAL HISTORY Date Observation Value Provider Underweight yes Axel Centeno smoking, year quit 2021 Axel osborne number of years as a smoker 60 a Axel Centeno smoking history, tot al pack/day 1.5 ppd Axel Centeno cigarette use yes Axel Centeno smoking status Current every day smoker J acarleen Salast Underweight yes Andrzej Shirley MD smoking, year quit 2021 Andrzej becerra MD number of years as a smoker 60 a Andrzej Shirley MD smoking history, tot al pack/day 1.5 ppd Andrzej Shirley MD cigarette use yes Andrzej Shirley MD smoking status Current every day smoker Christen Shirley MD Underweight yes Andrzej Shirley MD smoking, year quit [address] [facility] number of years as a smoker 60 a Carlene Rivera smoking history, tot al pack/day 1.5 ppd Carlene Rivera cigarette use yes Carlene Rivera smoking status Current every day smoker Guillermo Rivera Underweight yes Andrzej Shirley MD social history E&M S moking History: Chary holt currently smokes every day. Andrzej Shirley MD social history reviewed E&M revi ewed - no changes required Andrzej Shirley MD smoking status Current every day smoker Guillermo Rivera social history E&M S moking History: Chary holt is a former smoker. Andrezj Shirley MD social history reviewed E&M revi ewed - no changes required Andrzej Shirley MD number of years as a smoker 60 a Lisa Farfan smoking history, tot al pack/day 1.5 ppd Lisa Farfan smoking, year quit 2021 Lisa campos cigarette use yes Lisa almanza smoking status Former smoker Lisa cosmeer social history E&M S moking History: Chary holt has never smoked. Andrzej Shirley MD social history reviewed E&M revgladys ewed - no changes required Andrzej Shirley MD smoking status Never smoker Jacqui Stinson number of grandchildren Andrzej Shirley MD social history reviewed E&M zaid ewed - no changes required Andrzej Shirley MD social history E&M S moking History: Chary holt is a former smoker. Andrzej Shirley MD number of years as a smoker 60 a Lisa Farfan smoking history, tot al pack/day 1.5 ppd Lisa Farfan smoking, year quit 2021 Lisa campos cigarette use yes Lisa almanza smoking status Former smoker Lisa Kernmandy joseph INSURANCE PROVIDERS Payer name Policy type / Coverage type [place] red libertarian ID [employer] MEDICARE SUPPLEMENT Commercial insurance [employer] [id number] [place] Medicare [id number] ADVANCE DIRECTIVES Name Date DISCUSSED - NO DECISION MADE TREATMENT PLAN Date Name Performer [id number],Andrzej Santana ra, [place] [id number],S, H er updated medication list for this problem includes: Atorvastatin 40 Mg Tablet (Atorvastatin) ..... Take 1 tablet by mouth once a day Andrzej Shirley MD [id number],S, H er updated medication list for this problem includes: Metoprolol Succinate 25 Mg Tablet Extended Release 24 Hr (Metoprolol succinate) ..... Take 1 tablet by mouth once a day Entresto 24-26 Mg Tablet (Sacubitril-valsartan) ..... Take 1 tablet by mouth twice a day Aspirin 81 Mg Tablet,delayed Release (dr/ec) (Aspirin) ..... Take 1 tablet by mouth once a day Andrzej Shirley MD [id number],S, Andrzej Cowan ra, [place] [id number],S, Andrzej Cowan ra, MD [id number],S, Andrzej Cowan ra, [place] [id number],S, Andrzej Cowan ra, MD [id number],S, Andrzej Cowan ra, [place] [id number],S, Andrzej Cowan ra, MD [id number],S, H er updated medication list for this problem includes: Atorvastatin 40 Mg Tablet (Atorvastatin) ..... Take 1 tablet by mouth once a day Andrzej Shirley MD [id number],B, Andrzej Cowan ra, MD [id number],S, Andrzej Cowan ra, MD [id number],S, Andrzej Cowan [place] [id number],S, Andrzej Cowan ra, MD [id number],N, Andrzej Cowan ra, MD [id number],W, T he following medications were removed from the medication list: Lovastatin 10 Mg Tablet (Lovastatin) ..... Take 1 tablet by mouth once daily Her updated medication list for this problem includes: Atorvastatin 40 Mg Tablet (Atorvastatin) ..... Take 1 tablet by mouth once a day Andrzej Shirley MD [id number],W, Andrzej Cowan ra, [place] [id number],S, Andrzej Cowan ra, [place] [id number],S, Andrzej Cowan ra, MD [id number],W, Andrzej Cowan ra, MD [id number],N, Andrzej Cowan ra, MD [id number],N, Andrzej Cowan ra, MD [id number],N, Andrzej Cowan ra, MD Cardiology Axel Centeno Cardiology:This visi t has been a part of the consistent, comprehensive, and ongoing management of the chronic medical condition(s) listed above for the patient. H er updated medication list for this problem includes: Atorvastatin 40 Mg Tablet (Atorvastatin) ..... Take 1 tablet by mouth once daily [facility]iology:This visi t has been a part of the consistent, comprehensive, and ongoing management of the chronic medical condition(s) listed above for the patient. Axel Salas Cardiology [facility] Cardiology:This visi t has been a part of the consistent, comprehensive, and ongoing management of the chronic medical condition(s) listed above for the patient. Axel Centeno Cardiology: H er updated medication list for this problem includes: Metoprolol Succinate 25 Mg Tablet Extended Release 24 Hr (Metoprolol succinate) ..... Take 1 tablet by mouth once daily Aspirin 81 Mg Tablet,delayed Release (dr/ec) (Aspirin) ..... Take 1 tablet by mouth once a day Andrzej Shirley MD Cardiology: H er updated medication list for this problem includes: Atorvastatin 40 Mg Tablet (Atorvastatin) ..... Take 1 tablet by mouth once daily Andrzej Shirley MD Cardiology Andrzej Webber Cardiology Andrzej Webber Cardiology Andrzej Webber Cardiology Andrzej Webber Cardiology Andrzej Webber Cardiology Andrzej Webber Cardiology Andrzej Webber Cardiology: H er updated medication list for this problem includes: Metoprolol Succinate 25 Mg Tablet Extended Release 24 Hr (Metoprolol succinate) ..... Take 1 tablet by mouth once a day Aspirin 81 Mg Tablet,delayed Release (dr/ec) (Aspirin) ..... Take 1 tablet by mouth once a day Andrzej Shirley MD Cardiology: H er updated medication list for this problem includes: Atorvastatin 40 Mg Tablet (Atorvastatin) ..... Take 1 tablet by mouth once a day Andrzej Shirley MD Cardiology Andrzej Webber Cardiology Andrzej Webber Cardiology Andrzej Webber Cardiology Andrzej Webber Cardiology Andrzej Webber Cardiology: H er updated medication list for this problem includes: Atorvastatin 40 Mg Tablet (Atorvastatin) ..... Take 1 tablet by mouth once a day Andrzej Shirley MD Cardiology: H er updated medication list for this problem includes: Metoprolol Succinate 25 Mg Tablet Extended Release 24 Hr (Metoprolol succinate) ..... Take 1 tablet by mouth once a day Entresto 24-26 Mg Tablet (Sacubitril-valsartan) ..... Take 1 tablet by mouth twice a day Aspirin 81 Mg Tablet,delayed Release (dr/ec) (Aspirin) ..... Take 1 tablet by mouth once a day Andrzej Shirley MD Cardiology Andrzej Webber Cardiology Andrzej Webber Cardiology Andrzej Webber Cardiology Andrzej Webber Cardiology Andrzej Webber Cardiology Andrzej Webber Cardiology: H er updated medication list for this problem includes: Atorvastatin 40 Mg Tablet (Atorvastatin) ..... Take 1 tablet by mouth once a day Andrzej Shirley MD Cardiology Andrzej Webber Cardiology Andrzej Webber Cardiology Andrzej Webber Cardiology Andrzej Webber Cardiology Andrzej Webber Cardiology: T he following medications were removed from the medication list: Lovastatin 10 Mg Tablet (Lovastatin) ..... Take 1 tablet by mouth once daily Her updated medication list for this problem includes: Atorvastatin 40 Mg Tablet (Atorvastatin) ..... Take 1 tablet by mouth once a day Andrzej Shirley MD Cardiology Andrzej Webber Cardiology Andrzej Webber Cardiology Andrzej Webber Cardiology Andrzej Webber Cardiology Andrzej Webber Cardiology Andrzej Webber Cardiology Andrzej Webber Date Name CT Angio, Carotids LIPID PANEL TSH, free T4, total T3 D-DIMER, QUANTITATIV E PROBNP, N TERMINAL CBC (INCLUDES DIFF/P LT) LIPID PANEL BASIC METABOLIC PANE L W/EGFR DLCO - 16782 FRC - 16748 FVC - 30474 Complete Echo Stress Regadenoson Ambulatory BP HISTORY OF PROCEDURES Procedure Date Procedure Name Provider Procedure Notes S tatus EKG Andrzej Shirley MD complet ed EKG Andrzej Shirley MD complet ed Spirometry Andrzej Shirley MD complet ed FVC / MVV with bronchodilator - 91826 Andrzej Shirley MD completed BLOOD COUNT HEMOGLOBIN Andrzej Shirley MD completed FRC - 76983 Andrzej Shirley MD comple bertha SpO2 w/o 6min walk/titration Andrzej Shirley MD completed SVC - 26304 Andrzej Shirley MD comple bertha DLCO - 86837 Andrzej Shirley MD compl eted EKG Andrzej Shirley MD complet ed
--- OUTSIDE RECORDS SUMMARY | 2024-11-23 10:09 | XMS_ITS | Continuity of Care Document ---
Author Organization [employer] [facility] Address [address] [place] [address] Phone Care Team Providers Care Spring Bender Name Role Phone Kaushal Duong MD Unavailable [...] Diagnoses Date Provider Providers Copied on Encounter [facility], [address], [place], [place], [address], tel:[phone] SEC Tito BOSS Professional F/u exam, postop (chief complaint) Encounter for examination following surgery 6 Ad Easley. [address], [facility] [place], [address], [place]. tel:[phone] Referring Provider: Kaushal Galicia, [address] [facility] [address], [place], [address] . tel:[phone] [facility], [address], [place], [place], [address], [place] tel:[phone] SEC Tito BOSS Professional Procedure (chief complaint) Other secondary cataract, left eye 6 Ad Easley. [address], [address] [place], [address], [place]. tel:[phone] Referring Provider: Kaushal Galicia, [address], [place], [address] . tel:[phone] [facility], [address], [place], [place], [address], [place] tel:[phone] SEC Tito GERA Professional No Information 5 Yessiphyllis Kaushal. [address], [address] [place], [address], [place]. tel:[phone] [facility], [address], [place], [place], [address], [place] tel:[phone] SEC Tito BOSS Professional Procedure (chief complaint) After-catarac t of right eye with vision obscured Dec-0 9-201 5 Wankum Kaushal. [address], [address], [place], [place], [address], [place]. tel:[phone] Referring Provider: Kaushal Galicia, [address], [place], [address] . tel:[phone] [facility], [address], [place], [place], [address], [place] tel:[phone] SEC Tito BOSS Professional Difficulty reading (chief complaint) Pseudophakia of both eyesAfter-cat aract with vision obscured of both eyes Nov-2 - 5 Wankum Kaushal. [address], [address], [place], [place], [address], [place]. tel:[phone] Referring Provider: Kaushal Galicia, [address], [place], [address] . tel:[phone] [facility], [address], [place], [place], [address], [place] tel:[phone] SEC Tito BOSS Professional No Information Nov-0 -201 5 Wankum Kaushal. [address], [address], [place], [place], [address], [place]. tel:[phone] [facility], [address], [place], [place], [address], [place] tel:[phone] SEC Tito BOSS Professional Complete Eye Exam (chief complaint)r edness (chief complaint) PseudophakiaA fter cataract not obscuring visionDry eye Nov-1 8-201 4 Wankum Kaushal. [address], [place], [place], [address], [place]. tel:[phone] Referring Provider: Kaushal Galicia, [address] [facility] [address], [place], [address] . tel:[phone] [facility], [address], [place], [place], [address], [place] tel:[phone] SEC Tito GERA Professional FOLLOW-UP SURGERY NOSOPN CHRIS W BORDERLN FIND Low Risk Oct- 4 Nissa López. [address], [address], [place], [address], [place]. tel:[phone] Referring Provider: Kuashal Galicia, [address] [facility] [address], [place], [address] . tel:[phone] [facility], [address], [place], [place], [address], [place] [phone] SEC [facility] FOLLOW-UP SURGERY NOS 4 Dale Kennedy. [address], [address], [place], [place], [address], [place]. tel:[phone] [facility], [address], [place], [place], [address], [place] [phone] SEC Tito BOSS Professional FOLLOW-UP SURGERY NOS 4 Nissa López. [address], [address], [place], [address], [place]. tel:[phone] Referring Provider: Kaushal Galicia, [address] [facility] [address], [place], [address] . tel:[phone] [facility], [address], [place], [place], [address], [place] [phone] SEC Tito BOSS Professional FOLLOW-UP SURGERY NOS 4 [place] Kaushal. [address], [place], [place], [address], [place]. tel:[phone] Referring Provider: Kaushal Galicia, [address], [place], [address] . tel:[phone] [facility], [address], [place], [place], [address], [place] tel:[phone] [facility] No Information 4 Dale Brent. [address], [address], [place], [place], [address], [place]. tel:[phone] Referring Provider: Kaushal Galicia, [address], [place], [address] . tel:[phone] [facility], [address], [place], [place], [address], [place] tel:[phone] SEC [facility] No Information 4 Dale Brent. [address], [address], [place], [place], [address], [place]. tel:[phone] Referring Provider: Kaushal Galicia, [address], [place], [address] . tel:[phone] [facility], [address], [place], [place], [address], [place] tel:[phone] SEC Tito BOSS Professional FOLLOW-UP SURGERY NOS 4 [place] Easley. [address], [place], [place], [address], [place]. tel:[phone] Referring Provider: Kaushal Galicia, [address], [place], [address] . tel:[phone] [employer] [facility], [address], [place], [place], [address], [place] tel:[phone] SEC Tito BOSS Professional FOLLOW-UP SURGERY NOS 4 [place] Easley. [address] [facility], [address], [place], [place], [address], [place]. tel:[phone] Referring Provider: Kaushalgalina Galicia, [address] [facility] [address], [place], [address] . tel:[phone] [facility], [address], [place], [place], [address], [place] tel:[phone] [facility] No Information 4 Dale Brent. [address], [address], [place], [place], [address], [place]. tel:[phone] Referring Provider: Kaushal Duong Frida, [address] [facility] [address], [place], [address] . tel:[phone] [facility], [address], [place], [place], [address], [place] tel:[phone] SEC [place] [facility] No Information 4 [place] Brent. [address], [address], [place], [place], [address], [place]. tel:[phone] Referring Provider: Kaushal Dicksonphyllis Frida, [address] [facility] [address], [place], [address] . tel:[phone] Office/outpa tient [facility], [facility], [address], [place], [place], [address], [place] tel:[phone] SEC Tito BOSS Professional SENILE NUCLEAR CATARACT 3 Dale Brent. [address], [address], [place], [place], [address], [place]. tel:[phone] Referring Provider: Kaushal Galicia, [address] [facility] [address], [place], [address] . tel:[phone] [facility], [address], [place], [place], [address], [place] tel:[phone] SEC Tito OBSS Professional SENILE NUCLEAR CATARACTOPN CHRIS W BETOLN FIND Low Risk Oct-2 5-201 3 Ad Easley. [address] [facility], [facility] [address], [place], [place], [address], [place]. tel:[phone] Referring Provider: Kaushal Galicia, [address], [place], [address] . tel:[phone] Family History Family Member Type Diagnosis Age [...] No Information Instructions Date Instruction Additional Infor mazinann Impression/Plan - Go od result after YAG, will continue to monitor pt. Return to clinic in 1 year for complete exam or sooner with any problems. Follow up - Return i n 1 year with Kaushal Duong M.D. for Complete Exam. Follow up - Return i n 1 month with Kaushal Duong M.D. for post op exam. Impression/Plan - Go od post op results after Yag PC OD. Will continue to monitor. Proceed with Yag PC OS as scheduled. Patient tolerated procedure well; open pc. Return to clinic in 1 month for post op or sooner with any problems. Return in 1 month wi Kaushal Duong [...] eye with vision obscured Follow up - Schedule Yag PC OD Impression/Plan - Di scussed PCF formation with pt, discussed YAG PC for treatment. R/a/b explained. Pt understands and will schedule Yag PC OD. - Return in 1 year Related to Se e list of assessments above - Discussed diagnosi s in detail. Pt has dryness and PCF OU. Recommend Alaway, Zaditor, or Eye Itch Relief drops for allergies. If drops are helping than they should feel better in 5-10 minutes. RTC 1 year. Related to See list of assessments above FOLLOW-UP SURGERY NO S OPN ANGL W BORDERLN FIND Low Risk - doing well after phaco. Monitoring glaucoma as well, HVF 24-2 normal, iop higher end of normal, small but healthy nerve. RTC 6-9 months. Related to OPN ANGL W BORDERLN FIND Low Risk - RTC in 1 month with VF [...] Related to See impression: general plan - wants surg os Related to FOLLO W-UP SURGERY NOS 2weeks s/p cat with pciol od-doing well - finish drops Related to FOLLOW-UP SURGERY NOS - RTC as scheduled Related to Se e impression: general plan General plan -FOLLOW -UP SURGERY NOS - One day s/p phaco with IOL OD. IOL in good position. Medication instillation and post op instructions reviewed. RTC as scheduled or sooner if problems. Educational materials provided:about today's exam. Related to See impression: general plan - Schedule CE OD [...] IOL Master. Related to SENILE NUCLEAR CATARACT May- nsc ou - cat eval Ed ucational materials provided to patient. Related to SENILE NUCLEAR CATARACT elevated iop but nl optic n - ob servation Related to OPN ANGL W BORDERLN FIND Low Risk - cat eval Related to SENIL E NUCLEAR CATARACT Assessments Type Assessment Date assessment Encounter for examination follow ing surgery Patient Care Teams Name Effective Dates (start - stop) Status Members No Information
[2024-11-23 13:18] LABS: Basophils Absolute Auto 0.1 K/mm3 (0.0-0.1); Basophils Percent Auto 0.7 % (0.2-1.2); Eosinophils Absolute Auto 0.2 K/mm3 (0-0.3); Eosinophils Percent Auto 2.5 % (0-4.4); Hematocrit 39.9 % (37.0-47.0); Hemoglobin 12.5 g/dL (12.0-15.0); Immature Granulocyte Absolute 0.01 K/mm3 (0.00-0.031); Immature Granulocyte Percent A 0.1 % (0-0.5); Lymphocytes Absolute Auto 2.43 K/mm3 (0.9-3.2); Lymphocytes Percent Auto 36.3 % (18.3-44.2); Mean Corpuscular HGB Conc 31.3 g/dl (32-36); Mean Corpuscular Hemoglobin 29.8 pg (26-34); Mean Corpuscular Volume 95.2 fl (80-100); Mean Platelet Volume 10.8 fl (7.4-10.4); Monocytes Absolute Auto 0.5 K/mm3 (0.1-0.6); Monocytes Percent Auto 8.1 % (2.6-8.5); Neutrophils Absolute Auto 3.5 K/mm3 (1.3-6.7); Neutrophils Percent Auto 52.3 % (45.5-73.1); Platelet Count Result 302 k/mm3 (150-375); Red Blood Count 4.19 M/mm3 (4.2-5.4); Red Cell Distribution Width 14.9 % (11.5-14.5); White Blood Count 6.7 K/mm3 (4.5-10.0)
[2024-11-23 13:45] LABS: Alanine Aminotransferase 21 U/L (6-35); Albumin Level 4.2 g/dL (3.5-5.1); Alkaline Phosphatase 75 U/L (38-126); Anion Gap 7 mmol/L (4-12); Aspartate Amino Transferase 36 U/L (14-36); Bilirubin,Total 0.7 mg/dL (0.2-1.3); Blood Urea Nitrogen 14 mg/dL (7-17); Calcium 9.7 mg/dL (8.4-10.2); Carbon Dioxide 28 mmol/L (22-30); Chloride 106 mmol/L (98-107); Cholesterol 127 mg/dL (0-200); Estimated Glomerular Filt Rate > 60; Glucose 92 mg/dL (65-110); HDL Direct 45 mg/dL; Potassium 4.9 mmol/L (3.4-5.0); Sodium 141 mmol/L (137-145); Triglycerides 127 mg/dL (<150)
[2024-11-23 13:46] LABS: Hemoglobin A1C 5.8 % (<5.7)
[2024-11-23 13:56] LABS: LDL Cholesterol Direct 39 mg/dL
== END 2024-11-23 09:26 | disposition home or self-care (01) ==
LOC: ANHGOSHLAB 09:26
PROVIDERS: PCP Nurse Practitioner Family; Visit Provider Nurse Practitioner Family
DX: E78.5 Hyperlipidemia, unspecified (principal); I10 Essential (primary) hypertension; R73.03 Prediabetes; E55.9 Vitamin D deficiency, unspecified
CPT/HCPCS: 36415; 80053; 80061; 82306; 83036; 84443; 85025

== ENCOUNTER 2025-04-21 15:00 | Outpatient (CLI) | payer MEDICARE, SELFPAY ==
--- OUTSIDE RECORDS SUMMARY | 2015-10-02 04:45 | XMS_ITS | Continuity of Care Document ---
Author Organization [facility] Address [address] [place] [id number] Phone Care Team Providers Care Mc Kay Machine Operator Name Role Phone Kaushal Duong MD Unavailable Unavailable Allergies, Adverse Reactions, Alerts Substance Reaction Status Criticality No Known Allergies Resolved No Inform ation Medications Medication Instructions Dosage Effective Dates (start - stop) Status Comments Vitamin D2 50,000 unit capsule take 1 capsule by oral route every week - Active alendronate 70 mg tablet take 1 tablet by oral route every week in the morning, at least 30 min before first food, beverage, or medication of day 70 MG - Active lovastatin 10 mg tablet - Active aspirin 81 mg tablet,delayed release - Active lisinopril 10 mg tablet - Active multivitamin tablet - Active Vitamin B-12 500 mcg tablet - Active Procedures Procedure Date Post-op Follow-up Visit After Cataract Laser Surgery No Charge Refraction After Cataract Laser Surgery No Charge Refraction No Charge Refraction Eye Exam & Treatment Eye Exam & Treatment Post-op Follow-up Visit Visual Field Examination(s) Post-op Follow-up Visit Remove Cataract, Insert Lens Remove Cataract, Insert Lens,Comanaged F IOLMaster-Professional Post-op Follow-up Visit Remove Cataract, Post Op Care 4 Remove Cataract, Insert Lens,Comanaged J IOLMaster-Professional Office/outpatient Visit, Est No Charge Refraction No Charge Optomap Fundus Photos 013 IOLMaster-Technical Eye Exam, New Patient Advance Directives Directive Yes / No Effective Date File Name No Information Encounters Encounter Description Practice Location Reason(s) For Visit Diagnoses Date Provider Providers Copied on Encounter [facility], [address], [place], [place], [address], tel:[phone] SEC Tito BOSS Professional F/u exam, postop (chief complaint) Encounter for examination following surgery 6 Ad Easley. [address], [facility] [place], [place], [address], [place]. tel:[phone] Referring Provider: Kaushal Galicia, [address] [facility] [address], [place], [address] . tel:[phone] [facility], [address], [place], [place], [address], [place] tel:[phone] SEC Tito BOSS Professional Procedure (chief complaint) Other secondary cataract, left eye 6 Ad Easley. [address] [address], [address], [place], [address], [place]. tel:[phone] Referring Provider: Kaushal Galicia, [address], [place], [address] . tel:[phone] [facility], [address], [place], [place], [address], [place] tel:[phone] SEC Tito GERA Professional No Information 5 Yessiphyllis Kaushal. [address], [address] [place], [place], [address], [place]. tel:[phone] [facility], [address], [place], [place], [address], [place] tel:[phone] SEC Tito BOSS Professional Procedure (chief complaint) After-catarac t of right eye with vision obscured Dec-0 9-201 5 Wankum Kaushal. [address], [address], [place], [place], [address], [place]. tel:[phone] Referring Provider: Kaushal Galicia, [address], [place], [address] . tel:[phone] [facility], [address], [place], [place], [address], [place] tel:[phone] SEC Tito BOSS Professional Difficulty reading (chief complaint) Pseudophakia of both eyesAfter-cat aract with vision obscured of both eyes Nov-2 - 5 Wankum Kaushal. [address], [address], [place], [place], [address], [place]. tel:[phone] Referring Provider: Kaushal Galicia, [address], [place], [address] . tel:[phone] [facility], [address], [place], [place], [address], [place] tel:[phone] SEC Tito BOSS Professional No Information Nov-0 -201 5 Wankum Kaushal. [address], [address], [place], [place], [address], [place]. tel:[phone] [facility], [address], [place], [place], [address], [place] tel:[phone] SEC Tito BOSS Professional Complete Eye Exam (chief complaint)r edness (chief complaint) PseudophakiaA fter cataract not obscuring visionDry eye Nov-1 8-201 4 Wankum Kaushal. [address], [place], [place], [address], [place]. tel:[phone] Referring Provider: Kaushal Galicia, [address] [facility] [address], [place], [address] . tel:[phone] [facility], [address], [place], [place], [address], [place] tel:[phone] SEC Tito GERA Professional FOLLOW-UP SURGERY NOSOPN CHRIS W BORDERLN FIND Low Risk Oct- 4 Nissa López. [address], [address], [place], [address], [place]. tel:[phone] Referring Provider: Kaushal Galicia, [address] [facility] [address], [place], [address] . tel:[phone] [facility], [address], [place], [place], [address], [place] [phone] SEC [facility] FOLLOW-UP SURGERY NOS 4 Dale Kennedy. [address], [address], [place], [place], [address], [place]. tel:[phone] [facility], [address], [place], [place], [address], [place] [phone] SEC Tito BOSS Professional FOLLOW-UP SURGERY NOS 4 Nissa López. [address], [address], [place], [address], [place]. tel:[phone] Referring Provider: Kaushal Galicia, [address] [facility] [address], [place], [address] . tel:[phone] [facility], [address], [place], [place], [address], [place] [phone] SEC Tito BOSS Professional FOLLOW-UP SURGERY NOS 4 [place] Kaushal. [address], [place], [place], [address], [place]. tel:[phone] Referring Provider: Kaushal Galicia, [address], [place], [address] . tel:[phone] [facility], [address], [place], [place], [address], [place] tel:[phone] [facility] No Information 4 Keene Brent. [address], [address], [place], [place], [address], [place]. tel:[phone] Referring Provider: Kaushal Galicia, [address], [place], [address] . tel:[phone] [facility], [address], [place], [place], [address], [place] tel:[phone] SEC [place] N [facility] No Information 4 Dale Brent. [address], [place], [place], [address], [place]. tel:[phone] Referring Provider: Kaushal Galicia, [address], [place], [address] . tel:[phone] [facility], [address], [place], [place], [address], [place] tel:[phone] SEC Tito BOSS Professional FOLLOW-UP SURGERY NOS 4 [place] Easley. [address], [place], [place], [address], [place]. tel:[phone] Referring Provider: Kaushal Galicia, [address], [place], [address] . tel:[phone] [facility], [address], [place], [place], [address], [place] tel:[phone] SEC Tito BOSS Professional FOLLOW-UP SURGERY NOS 4 [place] Easley. [address] [facility], [address], [place], [place], [address], [place]. tel:[phone] Referring Provider: Kaushalgalina Galicia, [address] [facility] [address], [place], [address] . tel:[phone] [facility], [address], [place], [place], [address], [place] tel:[phone] [facility] No Information 4 Keene Brent. [address], [place], [place], [address], [place]. tel:[phone] Referring Provider: Kaushal Duong Frida, [address] [facility] [address], [place], [address] . tel:[phone] [facility], [address], [place], [place], [address], [place] tel:[phone] SEC [place] [facility] No Information 4 Dale Brent. [address], [place], [place], [address], [place]. tel:[phone] Referring Provider: Kaushal Dicksonphyllis Frida, [address] [facility] [address], [place], [address] . tel:[phone] [facility]pa [facility]ient Visit, [facility], [address], [place], [place], [address], [place] tel:[phone] SEC Tito BOSS Professional SENILE NUCLEAR CATARACT 3 Keene Brent. [address], [place], [place], [address], [place]. tel:[phone] Referring Provider: Kaushal Galicia, [address] [facility] [address], [place], [address] . tel:[phone] [facility], [address], [place], [place], [address], [place] tel:[phone] SEC Tito BOSS Professional SENILE NUCLEAR CATARACTOPN CHRIS W BETOLN FIND Low Risk Oct-2 5-201 3 Ad Easley. [address] [facility], [facility] [address], [place], [place], [address], [place]. tel:[phone] Referring Provider: Kaushal Galicia, [address] [facility] [address], [place], [address] . tel:[phone] Family History Family Member Type Diagnosis Age At Onset No Information Payers Payer name Insurance type Covered green party ID Authoriza tion(s) No Information Social History Type Description Quantity Date Captured Comments Alcohol Use Details Unknown Caffeine Use Details Unknown Tobacco Use Status Smoking Status No Information Sex Female Chief Complaint And Reason For Visit From encounter dated '10/02/2015 09:45'. F/u exam, postop (chief complaint). Description: The 75 year old female presents for a 1 month s/p yag pc OS. Patient states vision is better OS. Reason For Referral Reason For Referral No Information History Of Present Illness Encounter Date Complaint History Of Prese nt Illness F/u exam, postop The 75 year old female presents for a 1 month s/p yag pc OS. Patient states vision is better OS. Procedure The 75 year old female presents for a YAG PC OS and a 1 month s/p yag pc OD. Patient c/o decreased vision OS and states vision is better OD. Procedure The 75 year old female presents for a YAG PC OD. Patient c/o a film over OD and dcreased vision OD. Difficulty reading The 75 year o ld female presents for a complete IOL ou check. Patient c/o seems like a film over ou. Patient c/o decreased vision ou. redness Complete Eye Exam The 74 year ol d female presents for Complete Eye Exam. 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 Patient states OS vision is better than OD. Patient denies the daily use of eye drops. Functional Status Date Functional Assessmen t No Information Instructions Date Instruction Additional Infor roxane Impression/Plan - Go od result after YAG, will continue to monitor pt. Return to clinic in 1 year for complete exam or sooner with any problems. Follow up - Return i n 1 year with Kaushal Duong M.D. for Complete Exam. Impression/Plan - Go od post op results after Yag PC OD. Will continue to monitor. Proceed with Yag PC OS as scheduled. Patient tolerated procedure well; open pc. Return to clinic in 1 month for post op or sooner with any problems. Follow up - Return i n 1 month with Kaushal Duong M.D. for post op exam. Return in 1 month wi Kaushal Duong M.D. for post op exam. Related to After-cataract of right eye with vision obscured Impression/Plan - Pr oceed with Yag PC as scheduled. Patient tolerated procedure well; open pc. Return in 1 month for post op OD and yag pc OS or sooner with any problems. Related to After-cataract of right eye with vision obscured Follow up - Return i n 1 month with Kaushal Duong M.D. for post op exam. Related to After-cataract of right eye with vision obscured Impression/Plan - Di scussed PCF formation with pt, discussed YAG PC for treatment. R/a/b explained. Pt understands and will schedule Yag PC OD. Follow up - Schedule Yag PC OD - Discussed diagnosi s in detail. Pt has dryness and PCF OU. Recommend Alaway, Zaditor, or Eye Itch Relief drops for allergies. If drops are helping than they should feel better in 5-10 minutes. RTC 1 year. Related to See list of assessments above - Return in 1 year Related to Se e list of assessments above FOLLOW-UP SURGERY NO S OPN ANGL W BORDERLN FIND Low Risk - doing well after phaco. Monitoring glaucoma as well, HVF 24-2 normal, iop higher end of normal, small but healthy nerve. RTC 6-9 months. Related to OPN ANGL W BORDERLN FIND Low Risk General plan -FOLLOW -UP SURGERY NOS - 2 week post op to s/p phaco with IOL OS. Healing well. Medication instillation and post op instructions reviewed. RTC in 1 month with VF. Educational materials provided:about today's exam. Related to See impression: general plan - RTC in 1 month with VF Related to See impression: general plan - RTC as scheduled Related to Se e impression: general plan General plan -FOLLOW -UP SURGERY NOS - One day s/p phaco with IOL OS. IOL in good position. Medication instillation and post op instructions reviewed. RTC as scheduled or sooner if problems. Educational materials provided:about today's exam. Related to See impression: general plan 2weeks s/p cat with pciol od-doing well - finish drops Related to FOLLOW-UP SURGERY NOS - wants surg os Related to FOLLO W-UP SURGERY NOS General plan -FOLLOW -UP SURGERY NOS - One day s/p phaco with IOL OD. IOL in good position. Medication instillation and post op instructions reviewed. RTC as scheduled or sooner if problems. Educational materials provided:about today's exam. 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 Discussed all risks, benefits, procedures and recovery. Patient understands changing glasses will not improve vision. Patient desires to have surgery, recommend phacoemulsification with intraocular lens. Discussed toric and Crystalen lens options. Pt elects standard lens. Schedule CE OD first. Pt will need IOL Master. Related to SENILE NUCLEAR CATARACT Oct- - cat eval Related to SENIL E NUCLEAR CATARACT elevated iop but nl optic n - ob servation Related to OPN ANGL W BORDERLN FIND Low Risk nsc ou - cat eval Ed ucational materials provided to patient. Related to SENILE NUCLEAR CATARACT Assessments Type Assessment Date assessment Encounter for examination follow ing surgery Patient Care Teams Name Effective Dates (start - stop) Status Members No Information
--- NOTE | ~2025-04-21 | MM_ITS ---
EXAMINATION: MM screening love BI w fernando HISTORY: Screening TECHNIQUE: Craniocaudal and mediolateral oblique 3-D tomosynthesis images were obtained and synthetic 2-D images were generated. CAD analysis was submitted and interpreted. COMPARISON: 12/07/2023 BREAST PARENCHYMAL COMPOSITION: Not Dense: The breasts are almost entirely fatty. FINDINGS: There is no evidence of suspicious mass, calcification, or architectural distortion to suggest malignancy in either breast. [There has been no significant interval change. IMPRESSION: 1. No mammographic evidence of malignancy. Recommend routine screening mammography in one year. BI-RADS Category 1: Negative Reviewed, dictated, and finalized at Location [facility]. Reviewed, dictated and finalized at location Q. IMPRESSION: 1. No mammographic evidence of malignancy. Recommend routine screening mammogra phy in one year. BI-RADS Category 1: Negative
== END 2025-04-21 15:01 | disposition home or self-care (01) ==
LOC: ANHFOHIMG 15:02
PROVIDERS: PCP Nurse Practitioner Family; Visit Provider Family Medicine
DX: Z12.31 Encounter for screening mammogram for malignant neoplasm of breast (principal)
CPT/HCPCS: 77063; 77067

== ENCOUNTER 2025-06-07 12:42 | Outpatient (CLI) | payer MEDICARE, SELFPAY ==
--- OUTSIDE RECORDS SUMMARY | 2015-10-02 04:45 | XMS_ITS | Continuity of Care Document ---
Author Organization [facility] [place] [address] [facility], [place], [facility] by [facility] [address] Wren [address] [place] [address] Phone Care Team Providers Care Cup Machine Operator Name Role Phone Kaushal Duong [...] Diagnoses Date Provider Providers Copied on Encounter [facility], [address], [place], [place], [address], tel:[phone] SEC Tito BOSS Professional F/u exam, postop (chief complaint) Encounter for examination following surgery 6 Ad Easley. [address], [facility] [place], [place], [address], [place]. tel:[phone] Referring Provider: Kaushal Galicia, [address] [facility] [address], [place], [address] . tel:[phone] [facility], [address], [place], [place], [address], [place] tel:[phone] SEC Tito BOSS Professional Procedure (chief complaint) Other secondary cataract, left eye 6 Ad Easley. [address], [address] [place], [place], [address], [place]. tel:[phone] Referring Provider: Kaushal Galicia, [address], [place], [address] . tel:[phone] [facility], [address], [place], [place], [address], [place] tel:[phone] SEC Dedham GERA Professional No Information 5 Yessiphyllis Kaushal. [address], [address] [place], [address], [place]. tel:[phone] [facility], [address], [place], [place], [address], [place] tel:[phone] SEC Tito BOSS Professional Procedure (chief complaint) After-catarac t of right eye with vision obscured Dec-0 9-201 5 Wankum Kaushal. [address], [address], [place], [place], [address], [place]. tel:[phone] Referring Provider: Kaushal Galicia, [address], [place], [address] . tel:[phone] [facility], [address], [place], [place], [address], [place] tel:[phone] SEC Tito BOSS Professional Difficulty reading (chief complaint) Pseudophakia of both eyesAfter-cat aract with vision obscured of both eyes Nov-2 - 5 Wankum Kaushal. [address], [address], [place], [place], [address], [place]. tel:[phone] Referring Provider: Kaushal Galicia, [address], [place], [address] . tel:[phone] [facility], [address], [place], [place], [address], [place] tel:[phone] SEC Tito BOSS Professional No Information Nov-0 -201 5 Wankum Kaushal. [address], [address], [place], [place], [address], [place]. tel:[phone] [facility], [address], [place], [place], [address], [place] tel:[phone] SEC Tito BSOS Professional Complete Eye Exam (chief complaint)r edness (chief complaint) PseudophakiaA fter cataract not obscuring visionDry eye Nov-1 8-201 4 Wankum Kaushal. [address], [place], [place], [address], [place]. tel:[phone] Referring Provider: Kaushal Galicia, [address] [facility] [address], [place], [address] . tel:[phone] [facility], [address], [place], [place], [address], [place] tel:[phone] SEC Tito GERA Professional FOLLOW-UP SURGERY NOSOPN CHRIS W BORDERLN FIND Low Risk Oct- 4 Nissa López. [address], [address], [place], [address], [place]. tel:[phone] Referring Provider: Kaushal Galicia, [address] [facility] [address], [place], [address] . tel:[phone] [facility], [address], [place], [place], [address], [place] [phone] SEC [facility] FOLLOW-UP SURGERY NOS 4 Dale Kennedy. [address], [address], [place], [place], [address], [place]. tel:[phone] [facility], [address], [place], [place], [address], [place] [phone] SEC Tito BOSS Professional FOLLOW-UP SURGERY NOS 4 Nissa López. [address], [address], [place], [address], [place]. tel:[phone] Referring Provider: Kaushal Galicia, [address] [facility] [address], [place], [address] . tel:[phone] [facility], [address], [place], [place], [address], [place] [phone] SEC Tito BOSS Professional FOLLOW-UP SURGERY NOS 4 Venturachapis Kaushal. [address], [place], [place], [address], [place]. tel:[phone] Referring Provider: Kaushal Galicia, [address], [place], [address] . tel:[phone] [facility], [address], [place], [place], [address], [place] tel:[phone] [facility] No Information 4 Dale Brent. [address], [address], [place], [place], [address], [place]. tel:[phone] Referring Provider: Kaushal Galicia, [address], [place], [address] . tel:[phone] [facility], [address], [place], [place], [address], [place] tel:[phone] SEC Talmo N Stefanoalka No Information 4 Dale Brent. [address], [address], [place], [place], [address], [place]. tel:[phone] Referring Provider: Kaushal Galicia, [address], [place], [address] . tel:[phone] [facility], [address], [place], [place], [address], [place] tel:[phone] SEC Tito BOSS Professional FOLLOW-UP SURGERY NOS 4 Venturachapis Easley. [address], [place], [place], [address], [place]. tel:[phone] Referring Provider: Kaushal Galicia, [address], [place], [address] . tel:[phone] [facility], [address], [place], [place], [address], [place] tel:[phone] SEC Tito BOSS Professional FOLLOW-UP SURGERY NOS 4 Ventur[place]apis Easley. [address] [facility], [address], [place], [place], [address], [place]. tel:[phone] Referring Provider: Kaushalgalina Galicia, [address] [facility] [address], [place], [address] . tel:[phone] [facility], [address], [place], [place], [address], [place] tel:[phone] [facility] No Information 4 Dale Brent. [address], [address], [place], [place], [address], [place]. tel:[phone] Referring Provider: Kaushal Duong Frida, [address] [facility] [address], [place], [address] . tel:[phone] [facility], [address], [place], [place], [address], [place] tel:[phone] SEC Talmo Ingrid [facility] No Information 4 Gore Brent. [address], [address], [place], [place], [address], [place]. tel:[phone] Referring Provider: Kaushal Dicksonphyllis Frida, [address] [facility] [address], [place], [address] . tel:[phone] [facility]pa [facility], [address], [place], [place], [address], [place] tel:[phone] SEC Tito BOSS Professional SENILE NUCLEAR CATARACT 3 Dale Brent. [address], [address], [place], [place], [address], [place]. tel:[phone] Referring Provider: Kaushal Galicia, [address] [facility] [address], [place], [address] . tel:[phone] [facility], [address], [place], [place], [address], [place] tel:[phone] SEC Tito BOSS Professional SENILE NUCLEAR CATARACTOPN CHRIS W BETOLN FIND Low Risk Oct-2 5-201 3 Ad Easley. [address] [facility], [facility] [address], [place], [place], [address], [place]. tel:[phone] Referring Provider: Kaushal Galicia, [address] [facility], [place], [address] . tel:[phone] Family History Family Member Type Diagnosis Age At Onset No Information Payers Payer name Insurance type Covered republican ID Authoriza tion(s) No Information Social History [...] Related to Se e impression: general plan SENILE NUCLEAR CATAR ACT - Cataracts account for the patient's complaints. Discussed all risks, benefits, procedures and recovery. Patient understands changing glasses will not improve vision. Patient desires to have surgery, recommend phacoemulsification with intraocular lens. Discussed toric and Crystalen lens options. Pt elects standard lens. Schedule CE OD first. Pt will need IOL Master. Related to SENILE NUCLEAR CATARACT - Schedule CE OD first - Standar d Related to SENILE NUCLEAR CATARACT - cat eval Related to SENIL E [...]
--- NOTE | ~2025-06-07 | CT_ITS ---
EXAMINATION:CT lung screening DATE: 06/07/2025 13:15 INDICATION: Personal history of nicotine dependence. TECHNIQUE: Computed tomography (CT) of the chest was performed without intravenous contrast. Automated exposure control and iterative reconstruction technique were employed. The dose-length product (DLP) was 50.76 mGy-cm. COMPARISON: Chest CT 05/22/2022 FINDINGS: There is mild scarring at the lung apices. There is severe emphysema. There are tree-in-bud opacities in right middle lobe, left upper lobe, and left lower lobe, consistent with mild pneumonia. There is mild atelectasis bilaterally. There is a small groundglass opacity in right upper lobe. No pleural effusion. The heart size is normal. There are coronary artery calcifications. There are calcifications of the aortic valve. There is a small pericardial effusion. There is moderate thoracic spondylosis. IMPRESSION: 1. Lung-RADS category 2S: Benign appearance or behavior. Continue annual screening with noncontrast low-dose chest CT in 12 months. 2. Mild pneumonia. Reviewed, dictated and finalized at location E. IMPRESSION: 1. Lung-RADS category 2S: Benign appearance or behavior. Continue annual screen ing with noncontrast low-dose chest CT in 12 months. 2. Mild pneumonia.
== END 2025-06-07 12:43 | disposition home or self-care (01) ==
LOC: ANHIMG 12:43
PROVIDERS: PCP Nurse Practitioner Family; Visit Provider Nurse Practitioner Family
DX: Z12.2 Encounter for screening for malignant neoplasm of respiratory organs (principal); Z87.891 Personal history of nicotine dependence; J18.9 Pneumonia, unspecified organism
CPT/HCPCS: 71271